=== PATIENT | male | born 1950 | race Caucasian/White ===

== ENCOUNTER 2018-08-16 18:40 | Inpatient (IN) | payer MEDICARE, OTHER ==
[2018-08-16 19:32] LABS: #Basophils 0.1 thou/uL (0.0-0.2); #Lymphocytes 1.2 thou/uL (1.20-3.40); #Monocytes 0.5 thou/uL (0.11-0.59); #Neutrophils 5.2 thou/uL (1.40-6.50); %Basophils 1.1 % (0.0-1.0); %Eosinophils 0.5 % (0.0-10.0); %Lymphocytes 16.7 % (21.0-51.0); %Monocytes 7.6 % (0.0-10.0); %Neutrophils 74.2 % (42.0-75.0); Hemoglobin 12.9 g/dL (14.0-18.0); Mean Corpuscular HGB CONC 32.9 g/dL (32.0-36.0); Mean Corpuscular Volume 91.4 fL (78.0-98.0); Mean Platelet Volume 7.5 fL (7.4-10.4); Platelet Count 264 thou/uL (130-400); Red Blood Cell (RBC) Count 4.28 mill/uL (4.70-6.10); White Blood Cell (WBC) Count 7.1 thou/uL (4.8-10.8)
[2018-08-16 19:52] LABS: ALT (SGPT) 16 U/L (8-55); AST (SGOT) 22 U/L (5-34); Alkaline Phosphatase 191 U/L (40-150); Anion Gap 16 mmol/L (10-20); BUN (Urea Nitrogen) 11 mg/dL (8.4-25.7); CK (CPK) 48 U/L (30-200); Calc. Creatinine Clearance 0 mL/min (70-130); Calcium 9.9 mg/dL (7.8-10.44); Carbon Dioxide 23 mmol/L (23-31); Chloride 103 mmol/L (98-107); Estimated GFR-MDRD Greater than 90; Globulin 4.5 g/dL (2.4-3.5); Glucose 92 mg/dL (80-115); Potassium 3.8 mmol/L (3.5-5.1); Protein, Total 8.5 g/dL (5.8-8.1); Sodium 138 mmol/L (136-145)
--- NOTE | 2018-08-16 21:24 | RAD ---
TWO VIEWS CHEST: Date: 08-16-18 Comparison: None. History: Shortness of breath, CHF. FINDINGS: Midline sternotomy wires are present. No pneumothorax is seen. There is blunting of the left costophr enic angle suggesting a small left pleural effusion. Increased linear interstitial density and pulmonary hyperinflation suggests possible underlying COPD. There is nonspecific dense opacity involving the inferior half of the right hemithorax suggesting rig ht pleural effusion with nonspecific consolidation/collapse of the right middle and right lower lobe. Underlying mass lesion cannot be excluded. IMPRESSION: Prominent increased pleural and parenchymal opacity in the right base. Findings suggest infectious pn eumonitis/aspiration. Underlying mass lesion cannot be excluded. Short term follow up imaging of the chest following treatment to document resolution advised. There appears to be superimposed COPD. Clin ical correlation is essential. Code T POS: JULIAN
--- NOTE | 2018-08-16 23:22 | CT ---
CHEST CT SCAN WITHOUT IV CONTRAST: History: Increasing shortness of breath for the last three days, difficulty lying flat. Prior thoracentesis. FINDINGS: There is lymphadenopathy with the largest lymph node noted in the right paratracheal region measuring up to 2 cm in short axis. Other minimally enlarged lymph nodes in the AP window and right and left h ilar regions. Moderate sized right pleural effusion containing some small pockets of air suggesting r ecent instrumentation. There are some underlying parenchymal changes in the right anterior midlung zo ne which are pleural based measuring approximately 2 x 4 cm as well as a larger area in the right low er lobe and right lung base which measures approximately 7 cm in diameter. These could represent just focal nodular areas of subsegmental atelectasis although certainly the possibility of underlying mas s, particularly in the lower lobe area of abnormality is certainly a consideration as well given the mediastinal adenopathy. Small amount of left pleural effusion. The visualized liver, gallbladder, and pancreas are unremarkable. There is minimal splenomegaly. IMPRESSION: Moderate sized right pleural effusion containing some pockets of gas within it. This suggests either prior instrumentation or possibly infected pleural fluid. Two areas of confluent parenchymal density, one in the right middle lobe anterior and the other in the right lower lobe posteriorly. These could represent areas of atelectasis although certainly underlying mass or pneumonia are considerations as well. Mediastinal adenopathy as above with the largest node in the right paratracheal region measuri ng 2 cm in short axis. Small left pleural effusion. Splenomegaly. POS: [facility]
[2018-08-17] MEDS ORDERED: Dextrose 5% in Water 1,000 ML IV PRN (05:31)
[2018-08-17] MEDS ORDERED: Dextrose 50% Abboject 50 ML SYRINGE SLOW IVP PRN (05:31)
[2018-08-17] MEDS ORDERED: HumaLOG 300 UNITS/3 ML VIAL SC PRN ×2 (06:05)
[2018-08-17] MEDS ORDERED: Guaifenesin DM 100-10/5 ML UDCUP PO PRN (06:05)
[2018-08-17] MEDS ORDERED: Calcium Carbonate 500 MG ChewTAB PO PRN (06:05)
[2018-08-17] MEDS ORDERED: Acetaminophen 325 MG TAB PO PRN (06:05)
[2018-08-17] MEDS: Nicotine 14 MG PATCH TD SCH ×2 (08:47→09:07)
[2018-08-17] MEDS ORDERED: Famotidine 20 MG TAB ONE (09:17)
[2018-08-17] MEDS: Famotidine 20 MG TAB PO SCH ×2 (09:19→19:37)
[2018-08-17] MEDS: Famotidine/PF 20 mg/2ml Vial SLOW IVP SCH ×2 (09:22→19:39)
[2018-08-17 11:56] VITALS: BMI 28.1
[2018-08-17] MEDS: Piperacillin/Tazobactam 4.5 GM in Sodium Chloride 0.9% 100 ML IVPB SCH ×3 (12:41→23:52)
[2018-08-17] MEDS: Vancomycin HCl 1.25 GM in Sodium Chloride 0.9% 250 ML 250 ML IVPB SCH (14:19)
--- NOTE | 2018-08-17 15:04 | PDOC.PN ---
- Subjective Encounter Start Date: 08/17/18 Encounter Start Time: 15:00 Subjective: f/u for R pleural effusion and dyspnea. Hx of R pleural effusion s/ p -: thoracentesis x 4 times at [facility] . No pathology -: reported to patient. - Objective Resuscitation Status - Order Detail: 08/17/18 06:05 Resuscitation Status Routine Resuscitation Status: FULL: Full Resuscitation MAR Reviewed: Yes Vital Signs & Weight: Vital Signs (12 hours) Temp Pulse Resp BP Pulse Ox 08/17/18 10:50 97.6 F 98 20 167/79 H 93 L 08/17/18 06:05 93 L Weight Weight 196 lb 5 oz I&O: 08/16/18 08/17/18 08/18/18 06:59 06:59 06:59 Intake Total 240 Balance 240 Result Diagrams: 08/16/18 19:25 08/16/18 19:25 Additional Labs: Laboratory Tests 08/16/18 19:25 B-Natriuretic Peptide 353.5 H Radiology Reviewed by me: Yes (CT chest - R pleural effusion, R pulmonary mass/ adenopathy) Phys Exam - Physical Examination Constitutional: NAD HEENT: PERRLA, sclera anicteric, oral pharynx no lesions Neck: no nodes, no JVD, supple, full ROM diminished in R base Respiratory: no wheezing II/ ADRIANA in RUSB Cardiovascular: RRR, no rub, gallop Gastrointestinal: soft, non-tender, no distention, positive bowel sounds + edema, mild LE's venous stasis changes LE's bilat Musculoskeletal: pulses present Neurological: normal sensation, moves all 4 limbs Psychiatric: A&O x 3 Skin: normal turgor, cap refill <2 seconds Dx/Plan (1) Recurrent right pleural effusion Code(s): J90 - PLEURAL EFFUSION, NOT ELSEWHERE CLASSIFIED Status: Acute Comment: Recent thoracentesis x 4 with ? 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
[2018-08-17] MEDS ORDERED: Furosemide 40 MG/4 ML VIAL SLOW IVP SCH ×3 (16:30→17:00)
[2018-08-17] MEDS ORDERED: Losartan 25 MG TAB PO SCH (16:45)
[2018-08-17] MEDS ORDERED: Sodium Chloride 0.9% 10 ML ONE ×2 (19:33→23:06)
[2018-08-17] MEDS: traMADol HCl 50 MG TAB PO PRN (19:38)
--- NOTE | 2018-08-17 21:36 | HP ---
CHIEF COMPLAINT: Shortness of breath. HISTORY OF PRESENT ILLNESS: This is a 67-year-old male with past medical history of hyperlipidemia, and hypertension presenting with shortness of breath which has been worsened in the last three days prior to the day of admission. Per the patient, he has been having right-sided pleural effusion, which needed drainage. The patient states that he went to the physician in the Clinic and over there, the patient stated that he was treated by a physician who was contracted by the hospital and the physician told the patient that he has pleural effusion, which is making him very concerned of possible malignancy. At that point, the patient states that about 4.5 L of pleural fluid was drained. The patient stated that physician took some of the fluid and sent it to investigate if the patient has cancer and if the patient has malignancy. The patient states that he never got a clear result on whether there were some malignant cells or not. The patient stated that he has been trying to reach out to some of the doctors, but he has not been able to get in touch. The patient states that on July 29, he had to go back because he was developing another episode of shortness of breath and during that time, two bottles of fluid was also drained at that time. The patient stated that a tube was placed so that he can be able to keep draining from the lungs. Now the patient is coming to our hospital with a similar episode of shortness of breath, and per the patient, he has been told that there might be a possible mass or cancer. However, the patient stated that no definitive diagnosis has been made at this time. Per patient, he will give authorization for the hospital that he went to in the past for them to send his records and to follow up on the cytology that was ordered in the past. REVIEW OF SYSTEMS: Positive for shortness of breath, otherwise as documented in the HPI. All systems have been reviewed and are negative. PAST MEDICAL HISTORY: CHF, hyperlipidemia, and hypertension. PAST SURGICAL HISTORY: The patient had thoracentesis x2 in May 2018 and July 2018; mitral valve replacement; hernia surgery; and appendectomy. PSYCHIATRIC HISTORY: Anxiety. FAMILY HISTORY: Reviewed and noncontributory to this visit. SOCIAL HISTORY: The patient is a former tobacco smoker, he smoked for many years. The patient stated that he has quit and now he has gotten to the point where he just needs only two or three cigarettes in the day. ALLERGIES: NO KNOWN DRUG ALLERGIES. CURRENT MEDICATIONS: The patient takes: 1. Amlodipine 10 mg. 2. Metoprolol. 3. Losartan. 4. Furosemide. 5. Sertraline. PHYSICAL EXAMINATION: VITAL SIGNS: The patient's blood pressure is 176/78, pulse of 94, respiratory rate of 16, temperature of 97.7, oxygen saturation is 94. GENERAL: The patient is lying in bed, appears to be in mild distress due to shortness of breath. The patient appears his stated age. HEENT: Normocephalic, atraumatic. Pupils are equally round and reactive to light. Extraocular movements are intact. No scleral icterus. No conjunctival pallor. Mucous membranes are moist. Trachea is midline. Full range of motion. No JVDs appreciated. NECK: Supple. LUNGS: The patient has decreased right posterior lung sounds. He has good and clear lung sounds at the anterior lung walters bilaterally. CARDIAC: Positive S1 and S2. Regular rate and rhythm. No murmurs, no gallops, no rubs appreciated. ABDOMEN: Soft, nontender, and nondistended. Positive bowel sounds in all quadrants. No peritoneal signs. No rigidity. No guarding. EXTREMITIES: The patient has 5/5 upper extremity strength and good pulses bilaterally at the upper extremity and the lower extremity. The patient does have 2+ pitting edema at the lower extremities and good strength bilaterally at the lower extremities and the patient does have 2/4 dorsalis pedis pulses. NEUROLOGIC: Cranial nerves 2 through 12 grossly intact. No neurologic deficits noted. SKIN: Warm, dry, and intact. PSYCH: Normal affect. Alert and oriented x3. DIAGNOSTIC DATA: 1. EKG: A 12-lead EKG shows sinus rhythm with a rate of 97. 2. X-ray shows a right pleural effusion. 3. CT of the chest shows moderate-sized right pleural effusion containing some pockets of gas within it. This suggests prior instrumentation or possible infected pleural fluid. Two areas of confluent parenchymal density; one in the right middle lobe anterior and the other in the right lower lobe posteriorly. This could represent a risk of atelectasis although certainly underlying mass or pneumonia are considered as well. LABORATORY DATA: WBC 7.1, hemoglobin is 12.9, hematocrit is 39.2, and platelet count is 264. Sodium is 138, potassium is 3.8, chloride is 103, carbon dioxide of 23, anion gap of 16, BUN is 11, creatinine is 0.75, alkaline phosphatase is 191, and BNP is 353.5. ASSESSMENT AND PLAN: This is a 67-year-old being admitted for: 1. Shortness of breath, likely due to right-sided pleural effusion. At this time, the patient has been admitted to the hospital. We have consulted Pulmonology. The patient will need thoracentesis. We will continue to monitor the patient closely. We will give the patient respiratory treatment p.r.n. 2. Pleural effusion, likely due to possible malignancy. At this time, we will follow up on patient's previous labs and obtain the lab results. We will continue to monitor the patient closely. We will consult Oncology, Cardiology and Pulmonology. 3. Bilateral lower extremity edema, likely due to congestive heart failure exacerbation. At this point, we will continue the patient on his home current medications. We will continue to monitor the patient closely. 4. Abnormal chest x-ray, likely due to possible mass or underlying pneumonia. The patient will benefit from IV antibiotics. We will monitor the patient and consider starting the patient on vancomycin and Zosyn for broad-spectrum coverage. We will continue to monitor the patient at this time. 5. Hyperlipidemia. We will continue the patient on home medication. 6. Hypertension, currently uncontrolled. We will give the patient p.r.n. blood pressure medications to control the patient's blood pressure and we will continue the patient on home medications. 7. Deep venous thrombosis and gastrointestinal prophylaxis. Job ID: [id number]
[2018-08-18] MEDS: Vancomycin HCl 1.25 GM in Sodium Chloride 0.9% 250 ML 250 ML IVPB SCH ×2 (00:27→13:30)
--- NOTE | 2018-08-18 01:59 | CON ---
DATE OF CONSULTATION: 08/17/2018 HISTORY OF PRESENT ILLNESS: Mr. Luevano is a 67-year-old male. Apparently, he has had a pleural effusion and density in his right lower lung field that resembles a mass. He tells me he has never been biopsied. He has had multiple taps of his chest. He was never given a report of pathology or fluid results. He says the doctor that did the procedure does not live in this area and comes into town from [facility] and has never given him any results, and he has no idea how to get in contact with that doctor. PAST MEDICAL HISTORY: 1. Remarkable for lipid disorder. 2. History of cardiomyopathy, followed by Dr. Abdulkadir Hollingsworth. 3. History of hypertension. 4. History of two taps of his chest. Last time he says 2 L of brown fluid was removed from his chest. 5. History of porcine aortic valve replacement done in 2010. 6. History of hernia surgery. 7. History of appendectomy. SOCIAL HISTORY: He was a former half pack-a-day smoker. Recently started smoking a cigarette in the morning with coffee, but has quit doing that again. He always dips snuff. FAMILY HISTORY: Negative for lung disease in early age. REVIEW OF SYSTEMS: Ten-points review of systems completed, otherwise negative. He actually denies chest discomfort unless he moves suddenly. He denies fever, chills, sweats, purulent sputum, or hemoptysis. A 10-point review of systems is otherwise negative. PHYSICAL EXAMINATION: GENERAL: He is a very pleasant gentleman. He is in no distress. VITAL SIGNS: He is afebrile. Heart rate is 60, respiratory rate is 18, oximetry is 95% on room air, blood pressure 171/79. HEENT: Pupils are equal. Sclerae anicteric. NECK: Supple. No lymphadenopathy. LUNGS: Remarkable for decreased breath sounds at his right base. HEART: Regular rhythm. ABDOMEN: Soft and nontender. EXTREMITIES: Without clubbing, cyanosis or edema. LABORATORY DATA: White count 7.1, hemoglobin 12.9, platelets 264. Electrolytes are normal. BNP is 353. Serum protein total is 8.5, albumin is 4, globulin is 4.5. Chest CT shows right-sided pleural effusion. Right paratracheal lymph node is seen. There is a 2 x 4 cm density in the right lower lobe, it is oblong, does not have a classic appearance of malignancy but certainly could be. Pleural effusion that is seen on the right has pockets of air in it. IMPRESSION: Pleural effusion on the right, status post drainage procedure twice. I described thoracoscopy to him and he says that is what he had, but not really convinced that he has had a thoracoscopy. I think it is important that we evaluate medical records when we can obtain them from [facility]. With gas in his pleural space, I would be worried about an infection although this would have to be a gas producing anaerobe, which would be unusual. Hopefully, a surgical procedure can be avoided this admission, but I suspect there will have to be some sort of intervention. He appears medically stable fortunately at this time. It is a 50-minute consult, with greater than 50% of time was spent on the unit coordinating care. Job ID: [id number] [facility]
[2018-08-18 05:24] LABS: #Basophils 0.1 thou/uL (0.0-0.2); #Eosinphils 0.1 thou/uL (0.0-0.7); #Lymphocytes 1.6 thou/uL (1.20-3.40); #Monocytes 0.6 thou/uL (0.11-0.59); %Basophils 1.2 % (0.0-1.0); %Eosinophils 1.6 % (0.0-10.0); %Lymphocytes 25.8 % (21.0-51.0); %Monocytes 8.9 % (0.0-10.0); %Neutrophils 62.4 % (42.0-75.0); Hemoglobin 11.4 g/dL (14.0-18.0); Mean Corpuscular HGB CONC 33.4 g/dL (32.0-36.0); Mean Corpuscular Volume 89.8 fL (78.0-98.0); Platelet Count 242 thou/uL (130-400); RBC Distribution Width 12.9 % (11.5-14.5); Red Blood Cell (RBC) Count 3.79 mill/uL (4.70-6.10); White Blood Cell (WBC) Count 6.4 thou/uL (4.8-10.8)
[2018-08-18] MEDS: Piperacillin/Tazobactam 4.5 GM in Sodium Chloride 0.9% 100 ML IVPB SCH ×3 (05:27→18:08)
[2018-08-18 05:47] LABS: ALT (SGPT) 13 U/L (8-55); AST (SGOT) 16 U/L (5-34); Albumin 3.2 g/dL (3.4-4.8); Alkaline Phosphatase 159 U/L (40-150); Anion Gap 11 mmol/L (10-20); BUN (Urea Nitrogen) 11 mg/dL (8.4-25.7); Bilirubin, Total 1.3 mg/dL (0.2-1.2); Calc. Creatinine Clearance 112 mL/min (70-130); Carbon Dioxide 26 mmol/L (23-31); Chloride 103 mmol/L (98-107); Estimated GFR-MDRD Greater than 90; Globulin 3.8 g/dL (2.4-3.5); Glucose 95 mg/dL (80-115); Potassium 3.7 mmol/L (3.5-5.1); Sodium 136 mmol/L (136-145)
[2018-08-18] MEDS: Furosemide 40 MG/4 ML VIAL SLOW IVP SCH ×2 (06:10→13:31)
[2018-08-18] MEDS: Losartan 25 MG TAB PO SCH (08:48)
[2018-08-18] MEDS: Famotidine 20 MG TAB PO SCH ×2 (08:48→21:04)
[2018-08-18] MEDS: Nicotine 14 MG PATCH TD SCH (08:49)
--- NOTE | 2018-08-18 09:13 | PRG ---
DATE OF SERVICE: 08/18/2018 SUBJECTIVE: Mr. Luevano has no complaints overnight. OBJECTIVE: VITAL SIGNS: He is afebrile, heart rate is 65, respiratory rate is 18, oximetry is 95 on room air, and blood pressure is 144/65. LUNGS: Remarkable for decreased breath sounds in the right. HEART: Regular rhythm. ABDOMEN: Soft. I reviewed pleural fluid from [facility] from May. They did not send records that we requested from July. He says he had thoracoscopy and a chest tube and he actually has a chest tube scar or port scar in his right lateral chest. He also tells me that they did biopsies on him. I will again try to get these records. His pleural fluid had a protein of 4 with an LDH less than 200. The pH is 7.49. Cytology was negative. I did not find a cell count in the notes that were sent over. The cultures were negative. This again was back in May. His main concern that this pleural fluid with pockets of air. This is obviously worrisome for an infectious process, but I guess this could be related to removal of the chest tube and post chest tube removal pneumothorax that is resolving slowly mixed with chronic pleural effusion. I am hesitant to get CT Surgery involved until we have further records can evaluate his past care further. This is clearly a chronic effusion. It is initially sterile. The question to be answered is has it become infected. He also has this oval density in his lung parenchyma. An ideal time to biopsy this would have been when he had a chest tube in. It is unclear whether or not this has been biopsied. I suspect what he is saying was biopsied was pleura. Job ID: [id number] [facility]
--- NOTE | 2018-08-18 09:42 | CON ---
DATE OF CONSULTATION: HISTORY OF PRESENT ILLNESS: The patient is a 67-year-old gentleman, who presented with increasing dyspnea. The patient has a previous history of aortic valve replacement. He is followed by Dr. Abdulkadir Hollingsworth. The patient has been admitted several occasions with a right pleural effusion. He has undergone several thoracentesis. The patient has been also treated with IV Lasix. The patient denies having any chest discomfort. He reports having progressive dyspnea. The patient denies having any PND or orthopnea. PAST MEDICAL HISTORY: 1. Hypertension. 2. Aortic valve replacement. 3. Possible lung mass. PAST SURGICAL HISTORY: AVR, appendectomy , colon surgery and hernia surgery. SOCIAL HISTORY: He is a former smoker. MEDICATIONS: 1. Zoloft 50 daily. 2. Losartan 100 daily. 3. Norvasc 10 daily. 4. Toprol-XL 100 daily. 5. Lasix 40 daily. FAMILY HISTORY: No strong family history of heart disease. ALLERGIES: NO KNOWN DRUG ALLERGIES. REVIEW OF SYSTEMS: Ten-point system otherwise unremarkable. No history of easy bruising, bleeding, or bright red blood per rectum. PHYSICAL EXAMINATION: GENERAL: Thin gentleman, in no acute distress. VITAL SIGNS: Blood pressure 167/79. NECK: Showed no jugular venous distention. LUNGS: Decreased breath sounds throughout the right lung field. HEART: Regular rate and rhythm. Normal S1 and S2. No murmurs. ABDOMEN: Nondistended. EXTREMITIES: Moderate edema. SKIN: Warm and dry. NEUROLOGIC: Nonfocal. Vascular radial pulses are 2+. LABORATORY DATA: Sodium 138, potassium 3.8, chloride 103, bicarbonate 23, BUN 11, creatinine 0.75. Troponin was 0.019. White blood cell count 7.1, hemoglobin 12.9, hematocrit 39.2, and platelets 264. His chest x-ray showed him to have a large right-sided effusion. IMPRESSION: 1. Congestive heart failure, probably diastolic dysfunction. 2. History of aortic valve replacement. 3. Possible pulmonary mass. 4. Recurrent pleural effusions. 5. Hypertension. 6. History of tobacco abuse. This gentleman presents with congestive heart failure. From a cardiac standpoint, we will treat the patient with IV Lasix. Would discontinue Norvasc. We will restart the patient on his losartan. The patient is being evaluated for possible repeat thoracentesis. We will follow this patient with you through his hospitalization. Job ID: [id number] [facility]
[2018-08-18] MEDS: Famotidine/PF 20 mg/2ml Vial SLOW IVP SCH (12:47)
[2018-08-18] MEDS: traMADol HCl 50 MG TAB PO PRN (15:15)
--- NOTE | 2018-08-18 17:18 | PDOC.PN ---
- Subjective Encounter Start Date: 08/18/18 Encounter Start Time: 17:00 Subjective: f/u for dyspnea due to recurrent R pleural effusion. Pt states SOB less -: today. No fever or chills - Objective Resuscitation Status - Order Detail: 08/17/18 06:05 Resuscitation Status Routine Resuscitation Status: FULL: Full Resuscitation MAR Reviewed: Yes Vital Signs & Weight: Vital Signs (12 hours) Temp Pulse Resp BP BP Pulse Ox 08/18/18 12:00 97 F L 54 L 16 133/74 08/18/18 08:00 97.3 F L 59 L 16 140/63 96 Weight Weight 195 lb 6.4 oz I&O: 08/17/18 08/18/18 08/19/18 06:59 06:59 06:59 Intake Total 1634 Output Total 1350 900 Balance 284 -900 Result Diagrams: 08/18/18 04:28 08/18/18 04:28 Additional Labs: Microbiology 05/02/13 12:10 Urine voided Urine Culture - Final Escherichia coli Laboratory Tests 08/16/18 08/16/18 08/16/18 19:25 19:25 19:25 Hgb 12.9 L Total Bilirubin 1.0 Alkaline Phosphatase 191 H B-Natriuretic Peptide 353.5 H 08/18/18 04:28 Hgb Total Bilirubin Alkaline Phosphatase 159 H B-Natriuretic Peptide EKG Reviewed by me: Yes (Tele - SR) Phys Exam - Physical Examination Constitutional: NAD HEENT: PERRLA, sclera anicteric, oral pharynx no lesions Neck: no nodes, no JVD, supple, full ROM diminished in R base S1, S2 Cardiovascular: RRR, no rub, gallop Gastrointestinal: soft, non-tender, no distention, positive bowel sounds minimal LE edema Musculoskeletal: pulses present Neurological: normal sensation, moves all 4 limbs Psychiatric: A&O x 3 Skin: normal turgor, cap refill <2 seconds Dx/Plan (1) Recurrent right pleural effusion Code(s): J90 - PLEURAL EFFUSION, NOT ELSEWHERE CLASSIFIED Status: Acute Comment: Recent thoracentesis x 4 with reactive effusion and no current evidence for malignancy, Pulmonology assistance appreciated, obtain records from [facility] from recent admits, Lasix 40mg IV BID, continue Zosyn/Vancomycin (2) Dyspnea Code(s): R06.00 - DYSPNEA, UNSPECIFIED Status: Acute Comment: Secondary to # 1, see above, improved (3) Pulmonary mass Code(s): R91.8 - OTHER NONSPECIFIC ABNORMAL FINDING OF LUNG FIELD Status: Acute Comment: Suspected, consult Pulmonology service, obtain pathology from recent bronchoscopy/thoracentesis at [facility] (4) Chronic anticoagulation 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(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 Status: Acute Comment: Hold Eliquis pending evaluation from Pulmonology (5) CHF (congestive heart failure) Code(s): I50.9 - HEART FAILURE, UNSPECIFIED Status: Chronic Qualifiers: Heart failure type: unspecified Heart failure chronicity: chronic Qualified Code(s): I50.9 - Heart failure, unspecified Comment: Compensated currently, obtain echo results to assess EF - Plan continue antibiotics, 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
[2018-08-19] MEDS: Piperacillin/Tazobactam 4.5 GM in Sodium Chloride 0.9% 100 ML IVPB SCH ×4 (00:42→18:18)
[2018-08-19 00:48] LABS: Vancomycin, Trough 15.4 ug/mL
[2018-08-19] MEDS: Vancomycin HCl 1.25 GM in Sodium Chloride 0.9% 250 ML 250 ML IVPB SCH ×2 (01:14→12:51)
[2018-08-19] MEDS: Furosemide 40 MG/4 ML VIAL SLOW IVP SCH ×2 (06:13→14:58)
[2018-08-19] MEDS: Famotidine 20 MG TAB PO SCH ×2 (08:54→20:52)
[2018-08-19] MEDS: Potassium Chloride 20 MEQ TAB PO SCH (08:54)
[2018-08-19] MEDS: traMADol HCl 50 MG TAB PO PRN (11:32)
[2018-08-19] MEDS: Losartan 25 MG TAB PO SCH (15:06)
--- NOTE | 2018-08-19 17:06 | PDOC.PN ---
- Subjective Encounter Start Date: 08/19/18 Encounter Start Time: 17:00 Subjective: f/u for recurent R pleural effusion of unclear etiology with negative -: pathology to date. Receiving IV Lasix, Zosyn and feels -: better. - Objective Resuscitation Status - Order Detail: 08/17/18 06:05 Resuscitation Status Routine Resuscitation Status: FULL: Full Resuscitation MAR Reviewed: Yes Vital Signs & Weight: Vital Signs (12 hours) Temp Pulse Resp BP BP Pulse Ox 08/19/18 12:10 98.9 F 54 L 16 154/65 H 92 L 08/19/18 08:40 97.8 F 53 L 16 140/63 95 Weight Weight 194 lb 9.6 oz I&O: 08/18/18 08/19/18 08/20/18 06:59 06:59 06:59 Intake Total 1634 1450 320 Output Total 1350 2990 Balance 284 -1540 320 Result Diagrams: 08/18/18 04:28 08/18/18 04:28 EKG Reviewed by me: Yes (Tele - SR) Phys Exam - Physical Examination Constitutional: NAD alert, smiling HEENT: PERRLA, sclera anicteric, oral pharynx no lesions Neck: no nodes, no JVD, supple, full ROM diminished in R field Respiratory: no wheezing S1, S2 Cardiovascular: RRR, no rub, gallop Gastrointestinal: soft, non-tender, no distention, positive bowel sounds Musculoskeletal: no edema, pulses present Neurological: normal sensation, moves all 4 limbs Psychiatric: A&O x 3 Skin: normal turgor, cap refill <2 seconds Dx/Plan (1) Recurrent right pleural effusion Code(s): J90 - PLEURAL EFFUSION, NOT ELSEWHERE CLASSIFIED Status: Acute Comment: s/p recent thoracentesis with reactive effusion and no current evidence for malignancy, Pulmonology assistance appreciated, obtain records from [facility] from recent admits, Lasix 40mg IV BID, continue Zosyn (2) Dyspnea Code(s): R06.00 - DYSPNEA, UNSPECIFIED Status: Acute Comment: Secondary to # 1, see above, improved (3) Pulmonary mass Code(s): R91.8 - OTHER NONSPECIFIC ABNORMAL FINDING OF LUNG FIELD Status: Acute Comment: Suspected, consult Pulmonology service, obtain pathology from recent bronchoscopy/thoracentesis at [facility] (4) Chronic anticoagulation Code(s): Z79.01 - SNF (CURRENT) USE OF ANTICOAGULANTS Status: Acute Comment: Hold Anne pending evaluation from Pulmonology (5) CHF (congestive heart failure) Code(s): I50.9 - HEART FAILURE, UNSPECIFIED Status: Chronic Qualifiers: Heart failure type: unspecified Heart failure chronicity: chronic Qualified Code(s): I50.9 - Heart failure, unspecified Comment: Compensated currently, obtain echo results to assess EF - Plan continue antibiotics, social work nurse, respiratory therapy, out of bed/ambulate , DVT proph w/SCDs Stable overall -: Continue Lasix 40mg IV BID -: CT surgical consult for potential thoracoscopy, bx, pleurodesis -: Continue Zosyn -: Hold Michellequcody * .
--- NOTE | 2018-08-19 17:27 | PRG ---
DATE OF SERVICE: 08/19/2018 SUBJECTIVE: We finally received records from [facility]. Reviewed them. Apparently, Mr. Luevano had a 14-gauge chest tube placed under ultrasound guidance. He also had a bronchoscopy with a needle aspirate of his main estelle, transbronchial biopsies reportedly in his right lower lobe, and lavage of his middle lobe. No enlightening abnormalities were identified. I again reviewed his CT, and CT has the appearance of loculation of this fluid with air in it. It was noted when he was at [facility] that he had air in his pleural space. It is unclear whether this is related to transbronchial biopsies, chest tube placement, anaerobes, or an infection in that space. I do not think we are going to figure out a way to easily sort through this other than possibly thoracoscopy and chest tube placement. He also has a density in his right base that could be malignant, although it is oblong. This probably needs to be biopsied while he has a chest tube in if we can facilitate this. I plan to discuss the above with Cardiothoracic Surgery. Job ID: [id number]
[2018-08-20] MEDS: Piperacillin/Tazobactam 4.5 GM in Sodium Chloride 0.9% 100 ML IVPB SCH ×4 (00:45→17:42)
--- NOTE | 2018-08-20 00:50 | CON ---
DATE OF CONSULTATION: HISTORY OF PRESENT ILLNESS: Mr. Luevano is a 67-year-old gentleman, who was admitted with recurrent right pleural effusion. He was seen at the [facility] in late 2018 and had what sounds like chest tube and bronchoscopy done. His effusion was drained and was an exudative effusion. Bronchoscopy and biopsies were negative as far as results that we can obtain. He re-presented with recurrent right loculated pleural effusion that has air in it. He has had no fever or chills. No cough. He also has a right middle lobe potential mass-I have a hard time actually seeing this due to the compression of the middle lobe from his effusion but per previous reports, it is middle lobe mass. I have been asked to see him for further recommendations. PAST MEDICAL HISTORY: 1. Dyslipidemia. 2. Cardiomyopathy. 3. Hypertension. 4. Recurrent right pleural effusion. 5. History of aortic valve replacement in 2010 with a porcine aortic valve. 6. Status post appendectomy. 7. Status post herniorrhaphy. SOCIAL HISTORY: He is a former smoker. He continues to dip snuff. REVIEW OF SYSTEMS: Ten-point review of systems is performed and is negative except as above. PHYSICAL EXAMINATION: GENERAL: This is a thin gentleman, who is resting comfortably post diuresis. VITAL SIGNS: Height 5 feet 10 inches, weight is 194 pounds, temperature is 98.9, pulse is 50 and regular, blood pressure is 154/65. LUNGS: Clear bilaterally. He has diminished breath sounds over the low right chest. HEART: Rhythm is regular. Has good valve snap. Sternum is healed nicely. ABDOMEN: Soft and nontender. EXTREMITIES: He has mild edema-he has pictures of his edema prior to the admission showing significant bilateral lower extremity edema. I have reviewed his chest CT and chest x-ray series. ASSESSMENT AND PLAN: I have discussed with the patient extensively and with Dr. Adams, plan for right thoracoscopy tomorrow. We will hopefully be able to free up all of his lung, so it can re-expand, biopsy his pleura decorticate and drain all the loculations and biopsy the lung mass if we can actually see where it is on his lung. Job ID: [id number]
[2018-08-20] MEDS ORDERED: Midazolam HCl 2 mg/2 ml Vial ONE ×2 (09:30→12:37)
[2018-08-20] MEDS ORDERED: Fentanyl 250 MCG/5 ML VIAL ONE (09:54)
[2018-08-20 10:06] LABS: #Basophils 0.1 thou/uL (0.0-0.2); #Eosinphils 0.1 thou/uL (0.0-0.7); #Lymphocytes 1.4 thou/uL (1.20-3.40); #Monocytes 0.6 thou/uL (0.11-0.59); #Neutrophils 4.3 thou/uL (1.40-6.50); %Basophils 0.8 % (0.0-1.0); %Eosinophils 1.9 % (0.0-10.0); %Lymphocytes 21.9 % (21.0-51.0); %Monocytes 9.5 % (0.0-10.0); %Neutrophils 65.9 % (42.0-75.0); Hemoglobin 12.5 g/dL (14.0-18.0); Mean Corpuscular HGB CONC 32.3 g/dL (32.0-36.0); Mean Corpuscular Hemoglobin 29.2 pg (27.0-31.0); Mean Corpuscular Volume 90.4 fL (78.0-98.0); Mean Platelet Volume 7.4 fL (7.4-10.4); Platelet Count 279 thou/uL (130-400); Red Blood Cell (RBC) Count 4.27 mill/uL (4.70-6.10); White Blood Cell (WBC) Count 6.6 thou/uL (4.8-10.8)
--- NOTE | 2018-08-20 10:13 | PRG ---
DATE OF SERVICE: 08/20/2018 SUBJECTIVE: Mr. Luevano is to go for thoracoscopy today and chest tube placement with a decortication, washout if necessary. Hopefully, we can set him up for a CT-guided biopsy of this density in his right lower lobe. He has no new complaints today. He remains afebrile. His vital signs remained stable. His oximetry is 96% on room air. He has no wheezes on exam. IMPRESSION: 1. Exudative pleural effusion when tapped back in May, negative cytology. 2. Status post bronchoscopy by another physician. It is unclear whether or not the mass is identified under fluoroscopy, but it did not look like it reading the notes. 3. Loculated pockets of air in the pleural fluid, actually present back in July. It is unclear whether or not his pleural space has become infected, so he will have thoracoscopy today, washout, decortication, and cultures. 4. Density in is right lower lobe. This could be round-like atelectasis, but with smoking history, it could also be a malignant process. Hopefully, we can set him up for a CT-guided biopsy tomorrow while he has a chest tube in place. Hopefully, we will get all these questions answered, and he will proceed with recovery. Job ID: [id number]
[2018-08-20 10:21] LABS: INR-International Normal Ratio 1.1; Prothrombin Time 14.3 SEC (12.0-14.7)
[2018-08-20 10:29] LABS: PTT 244.1 SEC (22.9-36.1)
[2018-08-20 10:30] LABS: Anion Gap 12 mmol/L (10-20); BUN (Urea Nitrogen) 16 mg/dL (8.4-25.7); Calc. Creatinine Clearance 107 mL/min (70-130); Calcium 9.1 mg/dL (7.8-10.44); Carbon Dioxide 26 mmol/L (23-31); Chloride 103 mmol/L (98-107); Estimated GFR-MDRD Greater than 90; Glucose 95 mg/dL (80-115); Potassium 3.8 mmol/L (3.5-5.1); Sodium 137 mmol/L (136-145)
[2018-08-20] MEDS ORDERED: Bupivacaine HCl 0.5%/Epinephrine 1:200,000/PF 30 ml Vial ONE (10:36)
[2018-08-20] MEDS ORDERED: Albuterol Sulfate 1.25 MG/3 ML NEB ONE (12:23)
[2018-08-20] MEDS ORDERED: Promethazine HCl 25 MG/ML VIAL SLOW IVP PRN (12:25)
[2018-08-20] MEDS ORDERED: Ondansetron HCl/PF 4 MG/2 ML Vial IVP PRN (12:25)
[2018-08-20] MEDS ORDERED: Promethazine HCl 25 MG/ML VIAL IM PRN (12:25)
[2018-08-20] MEDS ORDERED: Fentanyl 100 MCG/2 ML VIAL ONE ×3 (12:32→12:49)
[2018-08-20] MEDS ORDERED: Sodium Bicarbonate 2.5 MEQ/5 ML VIAL ONE (12:38)
[2018-08-20] MEDS ORDERED: Vecuronium 10 MG VIAL ONE (12:59)
[2018-08-20] MEDS ORDERED: PROPOFOL 200 MG/20 ML VIAL ONE (12:59)
[2018-08-20] MEDS ORDERED: Lidocaine 1% PF 5 ML VIAL ONE (12:59)
[2018-08-20] MEDS ORDERED: Glycopyrrolate 0.2 MG/ML 5 ML SYRINGE ONE (12:59)
[2018-08-20] MEDS ORDERED: Ondansetron PF 4 MG/2 ML Vial ONE (12:59)
[2018-08-20] MEDS ORDERED: HYDROcodone/Acetaminophen 5/325 mg Tablet PO PRN (13:04)
[2018-08-20] MEDS ORDERED: Ondansetron PF 4 MG/2 ML Vial IVP PRN (13:04)
[2018-08-20] MEDS ORDERED: Fentanyl 100 MCG/2 ML VIAL SLOW IVP PRN ×2 (13:04)
--- NOTE | 2018-08-20 14:28 | RAD ---
PORTABLE UPRIGHT INSPIRATORY CHEST RADIOGRAPH: PORTABLE UPRIGHT EXPIRATORY CHEST RADIOGRAPH: HISTORY: Status post right thoracoscopy. COMPARISON: 03/23/2007 FINDINGS: Right-sided central venous catheter with the distal tip projecting over the region of the right atriu m. There is a large bore chest tube in the right lung base. A small, loculated pneumothorax in the right lung base/costophrenic angle is noted. There is increased density in the right lung base, whic h may represent overlying material, along with parenchymal opacification. Patchy interstitial opacit ies in the left lung base are suspected. Sternotomy wires are noted. Heart size is within normal li mits. No osseous abnormalities. IMPRESSION: Loculated pneumothorax in the right lung base. There is a chest tube in this region. POS: [facility]
--- NOTE | 2018-08-20 16:17 | CT ---
CT GUIDED RIGHT LUNG MASS BIOPSY AND ASPIRATION: 08/20/18 HISTORY: Right lung mass. CONSCIOUS SEDATION: 1 mg versed, IV. 50 mcg Fentanyl, IV. At least 30 minutes was spent with patient for conscious sedati on monitoring. FINDINGS: After explaining the procedure and answering all questions, the patient was placed in the left latera l decubitus position and limited CT imaging of the chest was performed. Sterile technique, buffered l ocal anesthesia, conscious sedation, CT guidance and posterior approach were used to carefully advanc e a 19 gauge trocar needle up to the superior portion of the right upper lobe mass abutting the major fissure. Position was confirmed with CT. A total of five 20 gauge core biopsy specimens were obtained and submitted to pathologist on site for evaluation. Some blood came through the needle, so that aspirate was also obtained and submitted to microbiology for evaluation. Needle was removed. Some blood was seen in the lung tissue around the m ass. Patient experienced coughing during the procedure. Patient tolerated the procedure well and was returned in unchanged condition. IMPRESSION: Technically successful CT guided biopsy and aspiration of right upper lobe lung mass. Pathology is pe nding. POS: [facility]
[2018-08-20] MEDS: Famotidine 20 MG TAB PO SCH ×2 (16:42→20:44)
[2018-08-20] MEDS: Losartan 25 MG TAB PO SCH (16:42)
[2018-08-20] MEDS: Furosemide 40 MG/4 ML VIAL SLOW IVP SCH (16:42)
[2018-08-20] MEDS: Potassium Chloride 20 MEQ TAB PO SCH (16:43)
--- NOTE | 2018-08-20 17:32 | PDOC.PN ---
- Subjective Encounter Start Date: 08/20/18 Encounter Start Time: 17:30 Subjective: f/u s/p CT guided bx of RUL mass and CT insertion with evacuation of -: effusion. Feels sore and tired after procedures today. - Objective Resuscitation Status - Order Detail: 08/17/18 06:05 Resuscitation Status Routine Resuscitation Status: FULL: Full Resuscitation MAR Reviewed: Yes Vital Signs & Weight: Vital Signs (12 hours) Temp Pulse Resp BP Pulse Ox 08/20/18 16:24 98.4 F 85 18 128/64 97 08/20/18 07:50 97.8 F 53 L 16 119/58 L 96 08/20/18 07:30 96 Weight Weight 192 lb 6.4 oz I&O: 08/19/18 08/20/18 08/21/18 06:59 06:59 06:59 Intake Total 1450 1930 Output Total 2990 4025 Balance -1540 -3217 Result Diagrams: 08/20/18 09:57 08/20/18 09:57 Additional Labs: Microbiology 05/02/13 12:10 Urine voided Urine Culture - Final Escherichia coli 08/20/18 14:30 Lung - Aspirate Bacterial Culture - Preliminary 08/20/18 11:20 Pleural - Tissue Bacterial Culture - Preliminary Laboratory Tests 08/16/18 08/16/18 08/16/18 19:25 19:25 19:25 Hgb 12.9 L Total Bilirubin 1.0 Alkaline Phosphatase 191 H B-Natriuretic Peptide 353.5 H Vancomycin Trough 08/18/18 08/18/18 08/19/18 04:28 04:28 00:16 Hgb 11.4 L Total Bilirubin Alkaline Phosphatase 159 H B-Natriuretic Peptide Vancomycin Trough 15.4 Radiology Reviewed by me: Yes (PCXR - CT in R lung base with loculated small PTX ) EKG Reviewed by me: Yes (Tele - SR) Phys Exam - Physical Examination Constitutional: NAD HEENT: PERRLA, sclera anicteric, oral pharynx no lesions Neck: no nodes, no JVD, supple, full ROM diminshed in R base with occasional rhonchi R-sided CT in place S1, S2 Cardiovascular: RRR, no significant murmur, no rub, gallop Gastrointestinal: soft, non-tender, no distention, positive bowel sounds Musculoskeletal: no edema, pulses present Neurological: normal sensation, moves all 4 limbs Psychiatric: normal affect, A&O x 3 Skin: normal turgor, cap refill <2 seconds Dx/Plan (1) Recurrent right pleural effusion Code(s): J90 - PLEURAL EFFUSION, NOT ELSEWHERE CLASSIFIED Status: Acute Comment: s/p recent thoracentesis with reactive effusion and no current evidence for malignancy, Pulmonology assistance appreciated, obtain records from [facility] from recent admits, Lasix 40mg IV BID, continue Zosyn, s/p CT- guided bx and CT insertion with evacuation of effusion (2) Dyspnea Code(s): R06.00 - DYSPNEA, UNSPECIFIED Status: Acute Comment: Secondary to # 1, see above, improved (3) Pulmonary mass Code(s): R91.8 - OTHER NONSPECIFIC ABNORMAL FINDING OF LUNG FIELD Status: Acute Comment: Suspected, consult Pulmonology service, obtain pathology from recent bronchoscopy/thoracentesis at [facility], CT-guided bx of RUL mass complete with pathology pending (4) Chronic anticoagulation Code(s): Z79.01 - CORRECTION (CURRENT) USE OF ANTICOAGULANTS Status: Acute Comment: Hold Eliquis pending evaluation from Pulmonology (5) CHF (congestive heart failure) Code(s): I50.9 - HEART FAILURE, UNSPECIFIED Status: Chronic Qualifiers: Heart failure type: unspecified Heart failure chronicity: chronic Qualified Code(s): I50.9 - Heart failure, unspecified Comment: Compensated currently, obtain echo results to assess EF - Plan continue antibiotics, neonatal social worker, respiratory therapy, DVT proph w/SCDs Stable currently -: Continue Zosyn 4.5gm IV q6h -: Continue CT drainage -: Continue Lasix 40mg IV BID another 24h then convert to po -: AM lab: BMP, CBC * .
[2018-08-20] MEDS: HYDROcodone/Acetaminophen 5/325 mg Tablet PO PRN ×2 (17:42→21:43)
[2018-08-20 18:11] LABS: A/G Ratio 0.8 (0.7-1.7); Albumin 2.9 g/dL (2.9-4.4); Alpha 1 0.3 g/dL (0.0-0.4); Alpha 2 0.6 g/dL (0.4-1.0); Gamma 1.6 g/dL (0.4-1.8); Globulin, Total 3.5 g/dL (2.2-3.9); M-Spike Not Observed g/dL (Not Observed)
[2018-08-20] MEDS ORDERED: Labetalol HCl 100 MG/20 ML VIAL ONE (18:20)
--- NOTE | 2018-08-20 18:44 | OP ---
DATE OF PROCEDURE: 08/20/2018 PREOPERATIVE DIAGNOSES: 1. Right recurrent pleural effusion with ? right pleural thickening. 2. Right middle lobe lung mass. PROCEDURES PERFORMED: 1. Right thoracoscopy with total pulmonary decortication. 2. Pleural biopsy. 3. Right central line placement. ANESTHESIA: General endotracheal. ESTIMATED BLOOD LOSS: Less than 100. SPECIMENS: 1. Pleural biopsy specimen x2. 2. Pleural fluid for culture and cytology. DESCRIPTION OF PROCEDURE: After consent was obtained, the patient was brought to the operating room, placed in supine position on the operating room table. Appropriate central line was placed, and general endotracheal anesthesia was induced. Right subclavian central line was placed for IV access. The patient was then placed in the left lateral decubitus position. Joints were appropriately padded. A flexible fiberoptic bronchoscopy was performed to confirm endotracheal tube positioning. The right chest wall was then prepped and draped in usual sterile fashion. Four separate skin incisions were made for instrumentation. The pleura was very thick. Once the pleura was entered, the fluid was evacuated. There was approximately 500 mL in the right lower chest cavity. This was sent for cytology. There was a large amount of fibrinous/gelatinous material within the chest, which was removed. This was also sent for culture. Two separate areas of pleura were biopsied. The pleura was thick and had a nodular appearance to it. The chest was then copiously irrigated. Hemostasis was ensured. The lung was inflated under direct vision. The lower lobe initially did not inflate, but eventually inflated and filled the chest cavity. The wounds were injected with 0.5% Marcaine and closed in layers. The patient was awakened, extubated, and transferred to the recovery in stable condition. Needle, sponge, and instrument counts were all reported as correct at the end of the procedure. Job ID: [id number]
[2018-08-21] MEDS: Piperacillin/Tazobactam 4.5 GM in Sodium Chloride 0.9% 100 ML IVPB SCH ×5 (00:31→23:58)
[2018-08-21] MEDS: Furosemide 40 MG/4 ML VIAL SLOW IVP SCH ×2 (05:43→13:55)
[2018-08-21] MEDS: HYDROcodone/Acetaminophen 5/325 mg Tablet PO PRN ×4 (05:48→21:11)
[2018-08-21 06:45] LABS: Hemoglobin 11.3 g/dL (14.0-18.0); Mean Corpuscular HGB CONC 31.8 g/dL (32.0-36.0); Mean Corpuscular Hemoglobin 29.1 pg (27.0-31.0); Mean Corpuscular Volume 91.3 fL (78.0-98.0); Mean Platelet Volume 7.7 fL (7.4-10.4); Platelet Count 298 thou/uL (130-400); RBC Distribution Width 12.8 % (11.5-14.5); Red Blood Cell (RBC) Count 3.88 mill/uL (4.70-6.10); White Blood Cell (WBC) Count 10.4 thou/uL (4.8-10.8)
[2018-08-21 06:46] LABS: Anion Gap 13 mmol/L (10-20); BUN (Urea Nitrogen) 24 mg/dL (8.4-25.7); Calc. Creatinine Clearance 72 mL/min (70-130); Calcium 8.9 mg/dL (7.8-10.44); Carbon Dioxide 26 mmol/L (23-31); Chloride 102 mmol/L (98-107); Estimated GFR-MDRD 59; Glucose 118 mg/dL (80-115); Potassium 3.9 mmol/L (3.5-5.1); Sodium 137 mmol/L (136-145)
[2018-08-21 08:02] LABS: Band 2 % (5-11); Lymphocytes 16 % (21-51); MDiff Complete? YES; Monocytes 3 % (0-10); Neutrophil 79 % (42-75); RBC Morphology Normal
--- NOTE | 2018-08-21 08:10 | RAD ---
PORTABLE CHEST: DATE: 08/21/2018. PROVIDED CLINICAL HISTORY: Post right thoracoscopy. FINDINGS: Comparison 08/20/2018. Cardiac and mediastinal silhouette is unchanged in appearance. Right-sided ch est tube is redemonstrated in similar position. A small amount of probably loculated pleural gas is again seen. Right-sided central line is again noted in similar position. Volume loss at the left henry ng base is again seen. Pleural and parenchymal change at the right lung base is also noted, similar to prior. IMPRESSION: Stable radiographic appearance of the chest. POS: OFF
[2018-08-21] MEDS: Losartan 25 MG TAB PO SCH (08:51)
[2018-08-21] MEDS: Potassium Chloride 20 MEQ TAB PO SCH (08:52)
[2018-08-21] MEDS: Famotidine 20 MG TAB PO SCH ×2 (08:52→21:13)
--- NOTE | 2018-08-21 14:00 | PDOC.PN ---
- Subjective Encounter Start Date: 08/21/18 Encounter Start Time: 14:00 Subjective: f/u for recurrent R pleural effusion/empyema s/p R decortication -: POD #1. Feels ok overall and CT remains in place. +cough - Objective Resuscitation Status - Order Detail: 08/17/18 06:05 Resuscitation Status Routine Resuscitation Status: FULL: Full Resuscitation MAR Reviewed: Yes Vital Signs & Weight: Vital Signs (12 hours) Temp Pulse Resp BP BP Pulse Ox 08/21/18 11:40 98.0 F 56 L 16 116/58 L 100 08/21/18 07:05 98.0 F 56 L 15 107/54 L 99 08/21/18 04:22 100 08/21/18 02:57 98.2 F 53 L 12 107/50 L 100 Weight Weight 191 lb 4.8 oz I&O: 08/20/18 08/21/18 08/22/18 06:59 06:59 06:59 Intake Total 1930 540 Output Total 4025 1010 Balance -2095 -470 Result Diagrams: 08/21/18 05:58 08/21/18 05:58 Additional Labs: Microbiology 05/02/13 12:10 Urine voided Urine Culture - Final Escherichia coli 08/20/18 14:30 Lung - Aspirate Acid Fast Bacilli Smear - Final 08/20/18 14:30 Lung - Aspirate Bacterial Culture - Preliminary 08/20/18 14:30 Lung - Aspirate Bacterial Culture - Preliminary 08/20/18 11:20 Pleural - Tissue Bacterial Culture - Preliminary 08/20/18 11:20 Pleural - Tissue Bacterial Culture - Preliminary Laboratory Tests 08/16/18 08/16/18 08/16/18 19:25 19:25 19:25 Hgb 12.9 L Total Bilirubin 1.0 Alkaline Phosphatase 191 H B-Natriuretic Peptide 353.5 H Vancomycin Trough 08/18/18 08/18/18 08/19/18 04:28 04:28 00:16 Hgb 11.4 L Total Bilirubin Alkaline Phosphatase 159 H B-Natriuretic Peptide Vancomycin Trough 15.4 Radiology Reviewed by me: Yes (PCXR - stable changes, R-sided CT in place) EKG Reviewed by me: Yes (Tele - SR) Phys Exam - Physical Examination Constitutional: NAD HEENT: PERRLA, sclera anicteric, oral pharynx no lesions Neck: no nodes, no JVD, supple, full ROM diminished in R hemithorax R-sided CT in place Respiratory: no wheezing S1, S2 Cardiovascular: RRR, no rub, gallop Gastrointestinal: soft, non-tender, no distention, positive bowel sounds Musculoskeletal: no edema, pulses present Neurological: normal sensation, moves all 4 limbs Psychiatric: A&O x 3 Skin: normal turgor, cap refill <2 seconds Dx/Plan (1) Recurrent right pleural effusion Code(s): J90 - PLEURAL EFFUSION, NOT ELSEWHERE CLASSIFIED Status: Acute Comment: s/p recent thoracentesis with reactive effusion and no current evidence for malignancy, Pulmonology assistance appreciated, obtain records from [facility] from recent admits, Lasix 40mg IV BID, continue Zosyn, s/p CT- guided bx and CT insertion with evacuation of effusion (2) Dyspnea Code(s): R06.00 - DYSPNEA, UNSPECIFIED Status: Acute Comment: Secondary to # 1, see above, improved (3) Pulmonary mass Code(s): R91.8 - OTHER NONSPECIFIC ABNORMAL FINDING OF LUNG FIELD Status: Acute Comment: Suspected, consult Pulmonology service, obtain pathology from recent bronchoscopy/thoracentesis at [facility], CT-guided bx of RUL mass complete with pathology pending (4) Chronic anticoagulation Code(s): Z79.01 - ASSISTED (CURRENT) USE OF ANTICOAGULANTS Status: Acute Comment: Anne on hold currently s/p thoracoscopy and R lung bx (5) CHF (congestive heart failure) Code(s): I50.9 - HEART FAILURE, UNSPECIFIED Status: Chronic Qualifiers: Heart failure type: unspecified Heart failure chronicity: chronic Qualified Code(s): I50.9 - Heart failure, unspecified Comment: Compensated currently, obtain echo results to assess EF - Plan continue antibiotics, social and political studies professor, respiratory therapy, DVT proph w/SCDs Stable currently -: Continue CT drainage -: Await final pleural tissue/fluid cx results -: Pleural/pulmonary pathology pending -: Continue Lasix 40mg IV BID * Continue Zosyn
--- NOTE | 2018-08-21 16:04 | PRG ---
DATE OF SERVICE: 08/21/2018 SUBJECTIVE: Mr. Luevano underwent thoracoscopy yesterday. He had pleural biopsies. He had a followup CT guided biopsy of his lung mass after his chest tube was placed. Bacterial cultures are not showing any growth so far. He has no complaints postprocedure, surprisingly, he is complaining of very little pain. He is in no distress. He is afebrile. Heart rate in the 50s,, respiratory rate 16, oximetry is 100% on 3 L, blood pressure 116/58. IMPRESSION: 1. Chronic pleural effusion with air-fluid levels in the pleural fluid status post thoracoscopy, pleural biopsies, pleural fluid cultures and fluid and pleural biopsy sent for cytology. 2. Status post decortication for the chronic pleural effusion with pleural thickening. 3. Status post CT-guided biopsy of a density seen on CT scan. Apparently, he has been there for some time reviewing old notes. PLAN: Continue supportive care. Awaiting results of fluid specimens. Job ID: [id number]
[2018-08-22] MEDS: HYDROcodone/Acetaminophen 5/325 mg Tablet PO PRN ×4 (00:55→21:21)
[2018-08-22] MEDS: Furosemide 40 MG/4 ML VIAL SLOW IVP SCH (05:13)
[2018-08-22] MEDS: Piperacillin/Tazobactam 4.5 GM in Sodium Chloride 0.9% 100 ML IVPB SCH ×4 (05:14→23:33)
[2018-08-22] MEDS: Famotidine 20 MG TAB PO SCH ×2 (09:21→21:23)
[2018-08-22] MEDS: Potassium Chloride 20 MEQ TAB PO SCH (09:21)
[2018-08-22] MEDS: Losartan 25 MG TAB PO SCH (09:21)
--- NOTE | 2018-08-22 12:07 | PDOC.PN ---
- Subjective Encounter Start Date: 08/22/18 Encounter Start Time: 12:05 Subjective: f/u for recurrent R pleural effusion s/p decortication and CT placement -: receiving Zosyn. Feels ok overall with some pain with coughing on R chest - Objective Resuscitation Status - Order Detail: 08/17/18 06:05 Resuscitation Status Routine Resuscitation Status: FULL: Full Resuscitation MAR Reviewed: Yes Vital Signs & Weight: Vital Signs (12 hours) Temp Pulse Resp BP BP Pulse Ox 08/22/18 11:57 97.3 F L 50 L 18 124/57 L 08/22/18 08:00 96.2 F L 46 L 16 98/53 L 93 L 08/22/18 03:29 97.9 F 50 L 18 102/49 L 95 08/22/18 00:05 97.5 F L 79 20 110/51 L 100 Weight Weight 193 lb I&O: 08/21/18 08/22/18 08/23/18 06:59 06:59 06:59 Intake Total 540 2440 Output Total 1010 1685 Balance -470 755 Result Diagrams: 08/21/18 05:58 08/21/18 05:58 Additional Labs: Microbiology 05/02/13 12:10 Urine voided Urine Culture - Final Escherichia coli 08/20/18 14:30 Lung - Aspirate Acid Fast Bacilli Smear - Final 08/20/18 14:30 Lung - Aspirate Bacterial Culture - Preliminary 08/20/18 14:30 Lung - Aspirate Bacterial Culture - Preliminary 08/20/18 14:30 Lung - Aspirate Bacterial Culture - Preliminary 08/20/18 11:20 Pleural - Tissue Bacterial Culture - Preliminary 08/20/18 11:20 Pleural - Tissue Bacterial Culture - Preliminary 08/20/18 11:20 Pleural - Tissue Bacterial Culture - Preliminary Laboratory Tests 08/16/18 08/16/18 08/16/18 19:25 19:25 19:25 Hgb 12.9 L Total Bilirubin 1.0 Alkaline Phosphatase 191 H B-Natriuretic Peptide 353.5 H Vancomycin Trough 08/18/18 08/18/18 08/19/18 04:28 04:28 00:16 Hgb 11.4 L Total Bilirubin Alkaline Phosphatase 159 H B-Natriuretic Peptide Vancomycin Trough 15.4 EKG Reviewed by me: Yes (Tele - sinus guzman in 40's) Phys Exam - Physical Examination Constitutional: NAD HEENT: PERRLA, sclera anicteric, oral pharynx no lesions Neck: no nodes, no JVD, supple, full ROM coarse sounds in R hemithorax, CT in place Respiratory: no wheezing, no rales S1, S2 Cardiovascular: RRR, no rub, gallop Gastrointestinal: soft, non-tender, no distention, positive bowel sounds mild LE edema Musculoskeletal: pulses present, edema present Neurological: normal sensation, moves all 4 limbs Psychiatric: A&O x 3 Skin: normal turgor, cap refill <2 seconds Dx/Plan (1) Recurrent right pleural effusion Code(s): J90 - PLEURAL EFFUSION, NOT ELSEWHERE CLASSIFIED Status: Acute Comment: s/p recent thoracentesis with reactive effusion and no current evidence for malignancy, Pulmonology assistance appreciated, obtain records from [facility] from recent admits, Lasix 40mg IV daily, continue Zosyn, s/p CT- guided bx and CT insertion with evacuation of effusion (2) Dyspnea Code(s): R06.00 - DYSPNEA, UNSPECIFIED Status: Acute Comment: Secondary to # 1, see above, improved (3) Pulmonary mass Code(s): R91.8 - OTHER NONSPECIFIC ABNORMAL FINDING OF LUNG FIELD Status: Acute Comment: Suspected but all pathology negative to date, likely consolidation of lung tissue (4) Chronic anticoagulation Code(s): Z79.01 - CORRECTION (CURRENT) USE OF ANTICOAGULANTS Status: Acute Comment: Eliquis on hold currently s/p thoracoscopy and R lung bx (5) CHF (congestive heart failure) Code(s): I50.9 - HEART FAILURE, UNSPECIFIED Status: Chronic Qualifiers: Heart failure type: unspecified Heart failure chronicity: chronic Qualified Code(s): I50.9 - Heart failure, unspecified Comment: Compensated currently, obtain echo results to assess EF (6) Sinus bradycardia Code(s): R00.1 - BRADYCARDIA, UNSPECIFIED Status: Acute Comment: Appears iatrogenic, decrease Metoprolol 50mg daily - Plan continue antibiotics, PT/OT, early childhood services coordinator, respiratory therapy, out of bed/ ambulate Stable overall -: Decrease Lasix 40mg IV daily -: Decrease Metoprolol 50mg daily -: Continue Zosyn -: AM lab: BMP * .
--- NOTE | 2018-08-22 13:28 | EKG ---
Test Reason : Blood Pressure : / mmHG Vent. Rate : 097 BPM Atrial Rate : 093 BPM P-R Int : 000 ms QRS Dur : 100 ms QT Int : 366 ms P-R-T Axes : 000 000 054 degrees QTc Int : 464 ms Sinus rhythm with A-V dissociation and Accelerated Junctional rhythm Incomplete right bundle branch block Nonspecific ST abnormality Abnormal ECG Confirmed by JUAN JOSE GLASGOW ([id number]), school photograph editor MARIE ROJAS ([id number]) on 08/22/2018 1:27:41 PM Referred By: Confirmed By:JUAN JOSE GLASGOW
--- NOTE | 2018-08-22 20:14 | PRG ---
DATE OF SERVICE: 08/22/2018 SUBJECTIVE: Mr. Luevano did well overnight. He has no complaints. He has not been out of bed much and I have encouraged him to spend time sitting up in a chair, even though he still has chest tube in. OBJECTIVE: VITAL SIGNS: He is afebrile. Heart rate 53, respiratory rate 16, blood pressure 124/60, and oximetry is 93% on a liter and half. CHEST: He has equal breath sounds bilaterally. HEART: Regular rhythm. ABDOMEN: Soft. He did not have an air leak. Pathology for the needle biopsy and the pleural biopsy are negative for malignancy. Cultures are negative at 48 hours. IMPRESSION AND PLAN: Chronic pleural effusion status post thoracentesis once and chest tube placement once with air in the pleural fluid, now status post decortication and thoracoscopy. We will continue with chest tube suction. We will follow his lung density with an outpatient CT probably in 3 to 4 months. I suspect this is an area of round atelectasis. The fluid was initially exudative based on a pleural fluid protein of 4 g. It is unclear whether or not this is simply a parapneumonic effusion that had failed to resolve or his chronic effusion related to something going on with his heart. In any event, we have not identified a malignancy, which he is very reassured with and we will continue to care for him. In the current fashion, we are awaiting removal of chest tube, which probably is several days away. Job ID: [id number]
[2018-08-23] MEDS: HYDROcodone/Acetaminophen 5/325 mg Tablet PO PRN ×3 (03:51→20:32)
[2018-08-23 06:07] LABS: Anion Gap 12 mmol/L (10-20); BUN (Urea Nitrogen) 35 mg/dL (8.4-25.7); Calc. Creatinine Clearance 77 mL/min (70-130); Carbon Dioxide 25 mmol/L (23-31); Chloride 99 mmol/L (98-107); Estimated GFR-MDRD 62; Glucose 116 mg/dL (80-115); Sodium 132 mmol/L (136-145)
[2018-08-23] MEDS: Piperacillin/Tazobactam 4.5 GM in Sodium Chloride 0.9% 100 ML IVPB SCH ×4 (06:18→23:23)
[2018-08-23] MEDS: traMADol HCl 50 MG TAB PO PRN (09:00)
[2018-08-23] MEDS ORDERED: Furosemide 40 MG/4 ML VIAL SLOW IVP SCH (09:00)
[2018-08-23] MEDS: Famotidine 20 MG TAB PO SCH ×2 (09:03→20:32)
[2018-08-23] MEDS: Losartan 25 MG TAB PO SCH (09:03)
[2018-08-23] MEDS: Potassium Chloride 20 MEQ TAB PO SCH (09:03)
[2018-08-23] MEDS: Senokot S 8.6-50 MG TAB PO PRN (15:59)
--- NOTE | 2018-08-23 17:22 | PDOC.PN ---
- Subjective Encounter Start Date: 08/23/18 Encounter Start Time: 17:25 Subjective: f/u for recurrent R pleural effusion s/p thoracoscopy/decortication and -: now CT drainage. Overall feels ok and no SOB. - Objective Resuscitation Status - Order Detail: 08/17/18 06:05 Resuscitation Status Routine Resuscitation Status: FULL: Full Resuscitation MAR Reviewed: Yes Vital Signs & Weight: Vital Signs (12 hours) Temp Pulse Resp BP Pulse Ox 08/23/18 12:00 97.8 F 87 18 138/63 98 08/23/18 08:00 98.0 F 55 L 18 135/63 98 Weight Weight 197 lb 3 oz I&O: 08/22/18 08/23/18 08/24/18 06:59 06:59 06:59 Intake Total 2440 1630 Output Total 1685 2690 Balance 755 -1060 Result Diagrams: 08/21/18 05:58 08/23/18 05:24 Additional Labs: Microbiology 05/02/13 12:10 Urine voided Urine Culture - Final Escherichia coli 08/20/18 14:30 Lung - Aspirate Acid Fast Bacilli Smear - Final 08/20/18 14:30 Lung - Aspirate Bacterial Culture - Preliminary 08/20/18 14:30 Lung - Aspirate Bacterial Culture - Preliminary 08/20/18 14:30 Lung - Aspirate Bacterial Culture - Preliminary 08/20/18 11:20 Pleural - Tissue Bacterial Culture - Preliminary 08/20/18 11:20 Pleural - Tissue Bacterial Culture - Preliminary 08/20/18 11:20 Pleural - Tissue Bacterial Culture - Preliminary Laboratory Tests 08/16/18 08/16/18 08/16/18 19:25 19:25 19:25 Hgb 12.9 L Total Bilirubin 1.0 Alkaline Phosphatase 191 H B-Natriuretic Peptide 353.5 H Vancomycin Trough 08/18/18 08/18/18 08/19/18 04:28 04:28 00:16 Hgb 11.4 L Total Bilirubin Alkaline Phosphatase 159 H B-Natriuretic Peptide Vancomycin Trough 15.4 EKG Reviewed by me: Yes (Tele - SR) Phys Exam - Physical Examination Constitutional: NAD HEENT: PERRLA, sclera anicteric, oral pharynx no lesions Neck: no nodes, no JVD, supple, full ROM few coarse sounds in R hemithorax R-sided CT in place S1, S2 Cardiovascular: RRR, no rub, gallop Gastrointestinal: soft, non-tender, no distention, positive bowel sounds Musculoskeletal: pulses present, edema present Neurological: normal sensation, moves all 4 limbs Psychiatric: A&O x 3 Skin: normal turgor, cap refill <2 seconds Dx/Plan (1) Recurrent right pleural effusion Code(s): J90 - PLEURAL EFFUSION, NOT ELSEWHERE CLASSIFIED Status: Acute Comment: s/p recent thoracentesis with reactive effusion and no current evidence for malignancy, Pulmonology assistance appreciated, obtain records from [facility] from recent admits, Lasix 40mg po BID, continue Zosyn, s/p CT- guided bx and CT insertion with evacuation of effusion (2) Dyspnea Code(s): R06.00 - DYSPNEA, UNSPECIFIED Status: Acute Comment: Secondary to # 1, see above, improved (3) Pulmonary mass Code(s): R91.8 - OTHER NONSPECIFIC ABNORMAL FINDING OF LUNG FIELD Status: Acute Comment: Suspected but all pathology negative to date, likely consolidation of lung tissue (4) Chronic anticoagulation Code(s): Z79.01 - FPC (CURRENT) USE OF ANTICOAGULANTS Status: Acute Comment: [place] on hold currently s/p thoracoscopy and R lung bx (5) CHF (congestive heart failure) Code(s): I50.9 - HEART FAILURE, UNSPECIFIED Status: Chronic Qualifiers: Heart failure type: unspecified Heart failure chronicity: chronic Qualified Code(s): I50.9 - Heart failure, unspecified Comment: Compensated currently, obtain echo results to assess EF (6) Sinus bradycardia Code(s): R00.1 - BRADYCARDIA, UNSPECIFIED Status: Acute Comment: Appears iatrogenic, decrease Metoprolol 50mg daily - Plan continue antibiotics, 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
--- NOTE | 2018-08-23 19:04 | PRG ---
DATE OF SERVICE: 08/23/2018 SUBJECTIVE: Mr. Luevano continues to be stable. Intake and output shows chest tube drainage, reportedly was 1420 mL coming into this morning. OBJECTIVE: VITAL SIGNS: He is afebrile. Heart rate is in 80s, respiratory rate 18, oximetry is 98% on room air, and blood pressure 138/63. LUNGS: Clear. IMPRESSION: Status post thoracoscopy, decortication, pleural biopsies and biopsy of lung mass, all negative. Cultures remain negative. Continue chest tube suction per Cardiothoracic surgery. Once he is out of here, I will be happy to follow him as an outpatient. Job ID: [id number]
[2018-08-23] MEDS: Furosemide 40 MG TAB PO SCH (20:32)
[2018-08-24] MEDS: Piperacillin/Tazobactam 4.5 GM in Sodium Chloride 0.9% 100 ML IVPB SCH ×4 (05:53→23:52)
[2018-08-24] MEDS: HYDROcodone/Acetaminophen 5/325 mg Tablet PO PRN ×4 (06:00→21:49)
[2018-08-24] MEDS ORDERED: Furosemide 40 MG TAB PO SCH (07:30)
--- NOTE | 2018-08-24 07:59 | PDOC.PN ---
- Subjective Encounter Start Date: 08/24/18 Encounter Start Time: 08:50 Subjective: Patient doing well. Tube clamped today. Ambulated to bathroom. Not yet -: gone in hallway. - Objective Resuscitation Status - Order Detail: 08/17/18 06:05 Resuscitation Status Routine Resuscitation Status: FULL: Full Resuscitation MAR Reviewed: Yes Vital Signs & Weight: Vital Signs (12 hours) Temp Pulse Resp BP BP Pulse Ox 08/24/18 07:15 97.8 F 88 16 152/69 H 95 08/24/18 03:00 97.6 F 59 L 16 117/57 L 96 08/24/18 00:00 97.5 F L 77 18 149/77 H 92 L 08/23/18 20:36 97 08/23/18 20:31 97.9 F 84 16 161/69 H 97 Weight Weight 219 lb 7 oz I&O: 08/23/18 08/24/18 08/25/18 06:59 06:59 06:59 Intake Total 1630 2780 Output Total 2690 4390 Balance -1060 -1610 Result Diagrams: 08/21/18 05:58 08/23/18 05:24 Phys Exam - Physical Examination Constitutional: NAD HEENT: moist MMs Respiratory: no wheezing, no rales, no rhonchi right chest tube in place Cardiovascular: RRR, no significant murmur Gastrointestinal: soft, positive bowel sounds Neurological: non-focal, moves all 4 limbs Psychiatric: normal affect, A&O x 3 Dx/Plan (1) Recurrent right pleural effusion Code(s): J90 - PLEURAL EFFUSION, NOT ELSEWHERE CLASSIFIED Status: Acute Comment: s/p recent thoracentesis with reactive effusion and no current evidence for malignancy, Pulmonology assistance appreciated, obtain records from [facility] from recent admits, Lasix 40mg po BID, continue Zosyn, s/p CT- guided bx and CT insertion with evacuation of effusion (2) Dyspnea Code(s): R06.00 - DYSPNEA, UNSPECIFIED Status: Acute Comment: Secondary to # 1, see above, improved (3) Pulmonary mass Code(s): R91.8 - OTHER NONSPECIFIC ABNORMAL FINDING OF LUNG FIELD Status: Acute Comment: Suspected but all pathology negative to date, likely consolidation of lung tissue (4) Chronic anticoagulation Code(s): Z79.01 - USP (CURRENT) USE OF ANTICOAGULANTS Status: Acute Comment: Anne on hold currently s/p thoracoscopy and R lung bx (5) CHF (congestive heart failure) Code(s): I50.9 - HEART FAILURE, UNSPECIFIED Status: Chronic Qualifiers: Heart failure type: unspecified Heart failure chronicity: chronic Qualified Code(s): I50.9 - Heart failure, unspecified Comment: Compensated currently, obtain echo results to assess EF (6) Sinus bradycardia Code(s): R00.1 - BRADYCARDIA, UNSPECIFIED Status: Resolved Comment: Appears iatrogenic, decrease Metoprolol 50mg daily - Plan cont current plan of care, continue antibiotics, DVT proph w/SCDs PT eval, once chest tube removed may be able to go home based on -: PT recs * . - Discharge Day Encounter end time: 09:00 Pulmonology Consult: Meds - Medications MAR Reviewed: Yes Medications: Current Medications Acetaminophen (Tylenol) 650 mg PO Q4H PRN PRN Reason: Headache/Fever/Mild Pain (1-3) Hydrocodone Bitart/Acetaminophen ([place] 5/325) 1 tab PO Q4H PRN PRN Reason: Mild-Moderate Pain (1-5) Last Admin: 08/22/18 17:40 Dose: 1 tab Hydrocodone Bitart/Acetaminophen ([place] 5/325) 2 tab PO Q4H PRN PRN Reason: Moderate to Severe Pain (6-10) Last Admin: 08/24/18 06:00 Dose: 2 tab Calcium Carbonate (Tums) 1,000 mg PO Q4H PRN PRN Reason: Heartburn or Indigestion Dextrose/Water (Dextrose 50%) 25 gm SLOW IVP PRN PRN PRN Reason: Hypoglycemia Famotidine (Pepcid) 20 mg PO BID [facility] Last Admin: 08/23/18 20:32 Dose: 20 mg Fentanyl (Sublimaze) 25 mcg SLOW IVP Q2H PRN PRN Reason: Mild-Moderate Pain (1-5) Fentanyl (Sublimaze) 50 mcg SLOW IVP Q2H PRN PRN Reason: Moderate to Severe Pain (6-10) Furosemide (Lasix) 40 mg PO BID [facility] Last Admin: 08/23/18 20:32 Dose: 40 mg Glucagon (Glucagon) 1 mg IM PRN PRN PRN Reason: Hypoglycemia Guaifenesin/Dextromethorphan (Robitussin Dm) 15 ml PO Q4H PRN PRN Reason: Cough Dextrose/Water (D5w) 1,000 mls @ 0 mls/hr IV .Q0M PRN PRN Reason: Hypoglycemia Piperacillin Sod/Tazobactam (Sod 4.5 gm/ Sodium Chloride) 100 mls @ 200 mls/hr IVPB Q6HR [facility] Last Admin: 08/24/18 05:53 Dose: 100 mls Losartan Potassium (Cozaar) 100 mg PO DAILY [facility] Last Admin: 08/23/18 09:03 Dose: 100 mg Metoprolol Succinate (Toprol Xl) 50 mg PO DAILY [facility] Last Admin: 08/23/18 09:07 Dose: 50 mg Miscellaneous Medication (Pharmacy To Dose) 0 each IVPB ASDIR PRN PRN Reason: Pharmacy to Dose ANTIBIOTICS Ondansetron HCl (Zofran) 4 mg IVP Q6H PRN PRN Reason: Nausea/Vomiting Potassium Chloride (K-Dur) 20 meq PO DAILY [facility] Last Admin: 08/23/18 09:03 Dose: 20 meq Senna/Docusate Sodium (Senokot S) 2 tab PO BID PRN PRN Reason: Constipation Last Admin: 08/23/18 15:59 Dose: 2 tab Sertraline HCl (Zoloft) 50 mg PO DAILY [facility] Last Admin: 08/23/18 09:02 Dose: 50 mg Sodium Chloride (Flush - Normal Saline) 10 ml IVF Q12HR [facility] Last Admin: 08/23/18 21:34 Dose: 10 ml Sodium Chloride (Flush - Normal Saline) 10 ml IVF PRN PRN PRN Reason: Saline Flush Last Admin: 08/23/18 17:49 Dose: 10 ml Tramadol HCl (Ultram) 50 mg PO Q6H PRN PRN Reason: Moderate Pain (4-6) Last Admin: 08/23/18 09:00 Dose: 50 mg - Allergies Allergies/Adverse Reactions: Allergies Allergy/AdvReac Type Severity Reaction Status Date / Time No Allergy Information Allergy Verified 08/17/18 13:13 Available
[2018-08-24] MEDS: Furosemide 40 MG TAB PO SCH ×2 (08:29→21:50)
[2018-08-24] MEDS: Potassium Chloride 20 MEQ TAB PO SCH (08:29)
[2018-08-24] MEDS: Losartan 25 MG TAB PO SCH (08:29)
[2018-08-24] MEDS: Famotidine 20 MG TAB PO SCH ×2 (08:30→21:51)
[2018-08-24] MEDS: Senokot S 8.6-50 MG TAB PO PRN (11:36)
--- NOTE | 2018-08-24 13:56 | PRG ---
DATE OF SERVICE: 08/24/2018 SUBJECTIVE: Mr. Luevano had nice chest tube to water seal. OBJECTIVE: VITAL SIGNS: He is afebrile, heart rate 61, respiratory rate 18, oximetry is 97% on room air, and blood pressure 156/68. Intake and outputs, negative 1610. He had 190 mL out of his chest tube. IMPRESSION: 1. Status post decortication. 2. Status post pleural biopsies that were negative for malignancy. 3. Status post biopsy of lung mass, negative for malignancy. 4. Chronic right pleural effusion that when first tapped at protein level 4 g. 5. Hopefully chest to be out 24 to 48 hours. He can be discharged home. Job ID: [id number]
[2018-08-25] MEDS: Piperacillin/Tazobactam 4.5 GM in Sodium Chloride 0.9% 100 ML IVPB SCH ×2 (05:44→12:46)
[2018-08-25] MEDS: HYDROcodone/Acetaminophen 5/325 mg Tablet PO PRN ×3 (05:44→15:57)
--- NOTE | 2018-08-25 07:24 | PDOC.PN ---
- Subjective Encounter Start Date: 08/25/18 Encounter Start Time: 10:00 Subjective: Patient without complaints. No SOB. No CP. Awaiting Chest tube -: removal. - Objective Resuscitation Status - Order Detail: 08/17/18 06:05 Resuscitation Status Routine Resuscitation Status: FULL: Full Resuscitation MAR Reviewed: Yes Vital Signs & Weight: Vital Signs (12 hours) Temp Pulse Resp BP BP Pulse Ox 08/25/18 03:12 97.7 F 54 L 19 120/56 L 95 08/25/18 00:00 98.0 F 60 16 167/70 H 95 08/24/18 20:50 98.1 F 63 16 135/63 97 Weight Weight 199 lb 3.2 oz I&O: 08/24/18 08/25/18 08/26/18 06:59 06:59 06:59 Intake Total 2780 1930 Output Total 4390 1585 Balance -1610 345 Result Diagrams: 08/21/18 05:58 08/23/18 05:24 Radiology Reviewed by me: Yes (no changes on repeat XR) Phys Exam - Physical Examination Constitutional: NAD HEENT: moist MMs Respiratory: no wheezing, no rales, no rhonchi chest tube in place Cardiovascular: RRR Gastrointestinal: soft, positive bowel sounds Neurological: non-focal, moves all 4 limbs Psychiatric: normal affect, A&O x 3 Dx/Plan (1) Recurrent right pleural effusion Code(s): J90 - PLEURAL EFFUSION, NOT ELSEWHERE CLASSIFIED Status: Acute Comment: s/p recent thoracentesis with reactive effusion and no current evidence for malignancy, Pulmonology assistance appreciated, obtain records from [facility] from recent admits, Lasix 40mg po BID, continue Zosyn, s/p CT- guided bx and CT insertion with evacuation of effusion (2) Dyspnea Code(s): R06.00 - DYSPNEA, UNSPECIFIED Status: Resolved Comment: Secondary to #1, see above, improved (3) Pulmonary mass Code(s): R91.8 - OTHER NONSPECIFIC ABNORMAL FINDING OF LUNG FIELD Status: Acute Comment: Suspected but all pathology negative to date, likely consolidation of lung tissue (4) Chronic anticoagulation 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 Can go home once chest tube out and -: cleared by CT surgery. * . - Discharge Day Encounter end time: 10:20
--- NOTE | 2018-08-25 08:03 | RAD ---
PORTABLE CHEST: History: Right chest decortication follow up. Comparison: 08-21-18 FINDINGS: Right chest tube is again seen in the right lung base. Pleural and parenchymal changes in the right b ase are felt to be fairly similar to the prior exam. There are moderate differences in technique whic h account for some differences. There is some lucent opacities in the base which appear to represent loculated gas. The atelectatic change in the left base has resolved. IMPRESSION: Relatively stable exam. Some of the atelectatic change in the left base have resolved. The right lung pleural and parenchymal changes are felt to be stable. POS: [facility]
[2018-08-25] MEDS: Potassium Chloride 20 MEQ TAB PO SCH (10:17)
[2018-08-25] MEDS: Famotidine 20 MG TAB PO SCH (10:18)
[2018-08-25] MEDS: Furosemide 40 MG TAB PO SCH (10:18)
[2018-08-25] MEDS: Losartan 25 MG TAB PO SCH (10:28)
--- NOTE | 2018-08-25 14:37 | PRG ---
DATE OF SERVICE: 08/25/2018 SUBJECTIVE: Dominique Luevano has his chest tube out. He is not having any problems. He denies pain or shortness of breath. OBJECTIVE: VITAL SIGNS: He is afebrile. Heart rate is 55, respiratory rate is 18, oximetry is 98% on room air, and blood pressure 185/74 and 140/65 earlier. LUNGS: Clear. HEART: Regular rhythm. ABDOMEN: Soft. IMPRESSION: 1. Status post decortication, pleural biopsy and biopsy of lung mass, all negative for malignancy. 2. Chronic pleural effusion, now status post decortication. PLAN: He is stable for discharge in my opinion to follow up with me in 2 weeks in the office with a chest x-ray. Job ID: [id number]
[2018-08-25 16:03] VITALS: BP 178/71; TEMP 97.7
--- NOTE | 2018-08-26 03:35 | DIS ---
DATE OF ADMISSION: 08/16/2018 DATE OF DISCHARGE: 08/25/2018 PRIMARY CARE PHYSICIAN: Dr. Sukhwinder Giraldo. REASON FOR ADMISSION: Recurrent right-sided pleural effusion with shortness of breath. DIAGNOSES AT DISCHARGE: 1. Recurrent right pleural effusion, resolved status post decortication. No evidence of malignancy. 2. Pulmonary mass, likely consolidated lung tissue. No evidence of malignancy. 3. Congestive heart failure, chronic. PROCEDURES: 1. CT of the chest showed a moderate-size right pleural effusion containing some pockets of gas within it, also with confluent parenchymal density in the right middle anterior lobe and right lower posterior lobe, possibly representing atelectasis versus mass or pneumonia, also some mediastinal adenopathy. 2. CT guided lung biopsy showing pleural fibrosis and benign lung parenchyma. 3. Right thoracostomy with total pulmonary decortication and pleural biopsy. CONSULTATIONS: 1. Cardiology, Dr. Moeller. 2. Pulmonology, Dr. Adams. 3. CT surgery, Dr. Enriquez. SUMMARY OF HOSPITAL COURSE: This is a 67-year-old man with a history of recurrent right-sided pleural effusion. This has been tapped before. There was concern for malignancy. However, no malignant cells were found on the fluid. The patient presented to our hospital with increasing shortness of breath. He had replenished fluid along with some air and it is concerning for possible infection versus tumor. Dr. Adams was consulted and determined the patient needed a biopsy and also of the chest tube and decortication. These were done. Dr. Enriquez was consulted for the decortication and thoracostomy. The patient also was thought to possibly be in some congestive failure. Dr. Moeller was consulted. He did diurese the patient a little bit. After diuresis and with chest tube placement, the patient had resolution of his shortness of breath. The chest tube was managed by CT surgery and eventually was DC today after having been clamped for all of yesterday. The patient was put on antibiotics initially for possible infection in the pleural fluid. This pleural fluid came back negative and he has completed 9 days of IV antibiotics. Antibiotics were being discontinued today. He was cleared to discharge by Dr. Adams and Dr. Enriquez. DISCHARGE MANAGEMENT: DISPOSITION: Discharged home. FOLLOWUP: Follow up with Dr. Adams in [address] 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 ACTIVITY: As tolerated. DIET: Healthy heart low-sodium diet. MEDICATIONS: The patient is to resume his previous medications; 1. Amlodipine 10 mg daily. 2. Furosemide 40 mg daily. 3. Hydralazine as needed. 4. Losartan 100 mg daily. 5. Metoprolol-XL 100 mg daily. 6. Potassium chloride 20 mEq daily. 7. Sertraline 50 mg daily plus tramadol 50 mg 1 to 2 tablets every 6 hours as needed for pain, 45 tablets dispensed. Arranging the details of this discharge took 32 minutes. Job ID: [id number]
== END 2018-08-25 19:39 | disposition home or self-care (01) | DRG 164 ==
LOC: ERS 18:40 → ERHOLD 22:52 → T4-A 08-17 10:46 → 2NO 08-17 15:47
PROVIDERS: ADMIT Internal Medicine; ATTEND Internal Medicine
PROC: 0BNK4ZZ Release Right Lung, Percutaneous Endoscopic Approach (ICD-10-PCS; principal; 2018-08-20)
PROC: 0BBN4ZX Excision of Right Pleura, Percutaneous Endoscopic Approach, Diagnostic (ICD-10-PCS; 2018-08-20)
PROC: 05H533Z Insertion of Infusion Device into Right Subclavian Vein, Percutaneous Approach (ICD-10-PCS; 2018-08-20)
PROC: 0B9C3ZX Drainage of Right Upper Lung Lobe, Percutaneous Approach, Diagnostic (ICD-10-PCS; 2018-08-20)
DX: J90 Pleural effusion, not elsewhere classified (principal); I50.32 Chronic diastolic (congestive) heart failure; I11.0 Hypertensive heart disease with heart failure; E78.5 Hyperlipidemia, unspecified; F41.9 Anxiety disorder, unspecified; F17.210 Nicotine dependence, cigarettes, uncomplicated; F17.290 Nicotine dependence, other tobacco product, uncomplicated; R91.8 Other nonspecific abnormal finding of lung field; R00.1 Bradycardia, unspecified; Z95.2 Presence of prosthetic heart valve; Z79.899 Other long term (current) drug therapy
CPT/HCPCS: 32405; 36415; 71045; 71046; 71250; 77012; 80048; 80053; 80202; 82550; 83880; 84165; 84484; 85007; 85025; 85027; 85610; 85730; 87070; 87116; 87205; 87206; 88112; 88305; 88312; 88333; 88334; 93005; J0670; J1642; J1940; J2001; J2250; J2405; J2543; J2704; J3010; J3370; J7050; S0028

== ENCOUNTER 2018-09-02 10:35 | Outpatient (CLI) | payer MEDICARE, OTHER ==
--- NOTE | 2018-09-02 11:31 | RAD ---
2 VIEW CHEST: Date: 09/02/18 HISTORY: Dyspnea. Prior chest decortication and chest tube. Comparison made to portable film of 08/25/18. FINDINGS: There continues to be abnormal opacification of the right lung base obscuring the right hemidiaphragm indicating dense consolidation and atelectasis. Pleural thickening and/or fluid along the right lateral chest wall is noted. Left lung remains clear and unchanged. There is cardiomegaly and postop sternotomy change. IMPRESSION: Continued opacification of the right lung base with pleural thickening and/or pleural fluid along the right lateral chest wall. Findings are similar to the 08/25/18 portable exam. POS: [facility]
== END 2018-09-02 10:36 | disposition home or self-care (01) ==
LOC: RAD 10:35
PROVIDERS: ATTEND Internal Medicine Critical Care Medicine
DX: R06.00 Dyspnea, unspecified (principal); J92.9 Pleural plaque without asbestos; R91.8 Other nonspecific abnormal finding of lung field
CPT/HCPCS: 71046

== ENCOUNTER 2018-09-05 21:16 | Inpatient (IN) | payer MEDICARE, OTHER ==
[2018-09-06] MEDS ORDERED: Ondansetron ODT 4 MG TAB PO PRN (00:51)
[2018-09-06] MEDS ORDERED: Acetaminophen 325 MG TAB PO PRN (00:51)
[2018-09-06] MEDS ORDERED: Ondansetron PF 4 MG/2 ML Vial IVP PRN (00:51)
[2018-09-06] MEDS ORDERED: VANCOMYCIN IVPB PRN (01:01)
[2018-09-06 02:31] VITALS: BMI 28.2
[2018-09-06] MEDS: Piperacillin/Tazobactam 3.375 GM in Sodium Chloride 0.9% 100 ML IVPB SCH ×4 (02:38→21:33)
[2018-09-06 03:12] LABS: #Basophils 0.1 thou/uL (0.0-0.2); #Lymphocytes 0.9 thou/uL (1.20-3.40); #Monocytes 0.7 thou/uL (0.11-0.59); #Neutrophils 5.7 thou/uL (1.40-6.50); %Basophils 0.7 % (0.0-1.0); %Eosinophils 0.5 % (0.0-10.0); %Lymphocytes 12.4 % (21.0-51.0); %Monocytes 8.8 % (0.0-10.0); %Neutrophils 77.6 % (42.0-75.0); Hemoglobin 10.3 g/dL (14.0-18.0); Mean Corpuscular HGB CONC 33.9 g/dL (32.0-36.0); Mean Corpuscular Hemoglobin 30.4 pg (27.0-31.0); Mean Corpuscular Volume 89.5 fL (78.0-98.0); Platelet Count 218 thou/uL (130-400); RBC Distribution Width 12.9 % (11.5-14.5); Red Blood Cell (RBC) Count 3.38 mill/uL (4.70-6.10); White Blood Cell (WBC) Count 7.3 thou/uL (4.8-10.8)
[2018-09-06 03:28] LABS: Vancomycin, Random 12.1 ug/mL (See Comment)
[2018-09-06 03:39] LABS: Anion Gap 14 mmol/L (10-20); BUN (Urea Nitrogen) 19 mg/dL (8.4-25.7); Calc. Creatinine Clearance 111 mL/min (70-130); Calcium 9.2 mg/dL (7.8-10.44); Carbon Dioxide 25 mmol/L (23-31); Chloride 101 mmol/L (98-107); Estimated GFR-MDRD Greater than 90; Glucose 159 mg/dL (80-115); Potassium 3.8 mmol/L (3.5-5.1); Sodium 136 mmol/L (136-145)
[2018-09-06] MEDS: traMADol HCl 50 MG TAB PO PRN (03:50)
--- NOTE | 2018-09-06 04:09 | HP ---
PRIMARY CARE PHYSICIAN: Dr. Sukhwinder Giraldo. CODE STATUS: For this patient is full code. TIME OF EVALUATION: 12 a.m. CHIEF COMPLAINT: Productive cough and shortness of breath. HISTORY OF PRESENT ILLNESS: This is a 67-year-old male patient with past medical history of recent decortication for empyema. The patient came to the hospital after having rather worsening cough that is productive, no clear triggers. No alleviating factors associated with shortness of breath. Symptoms were reported as moderate and the patient has pain associated. The symptoms started insidiously and has been gradually getting worse. REVIEW OF SYSTEMS: CONSTITUTIONAL: No fever, chills, or generalized weakness. RESPIRATORY: The patient has cough, sputum production, shortness of breath. CARDIOVASCULAR: Chest pain. No palpitation. GASTROINTESTINAL: No nausea. No vomiting, diarrhea, or abdominal pain. 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 GENITOURINARY; no burning on urination. EXTREMITIES: No leg swelling. All other systems were reviewed and negative except for the findings mentioned above. PAST MEDICAL HISTORY: Positive for CHF, hyperlipidemia, hypertension. FAMILY HISTORY: Reviewed and non contributory to current presentation. SURGICAL HISTORY: Thoracentesis x3 on May 2018, July 2018, and in August 2018. Surgical history also includes heart valve replacement, hernia surgery, surgical history of appendectomy. PSYCH HISTORY: Includes anxiety. SOCIAL HISTORY: The patient denies alcohol use. No drug use. The patient is a former tobacco user. Smokes cigarettes. The patient quit smoking less than 10 years ago. KNOWN ALLERGIES: No known drug allergies reported. MEDICATIONS: 1. Amlodipine. 2. Metoprolol. 3. Losartan. 4. Furosemide. 5. Sertraline. 6. Hydralazine. PHYSICAL EXAMINATION: VITAL SIGNS: On presentation, blood pressure 166/66 with heart rate 72, respiratory rate was 18, temperature 98.5, oxygen saturation was 97% on room air. GENERAL APPEARANCE: The patient is alert, oriented, not in acute distress. HEENT: Eyes; normal conjunctivae. Moist oral mucosa. Anicteric. No JVD. RESPIRATORY: Bilateral air entry. No rales. No wheezes. Symmetric expansion. The patient has some surgical wounds that are healing properly in the chest wall. CARDIOVASCULAR: Normal rate, regular rhythm. No murmurs. No gallops. No edema. ABDOMEN: Soft. Normal bowel sounds. MUSCULOSKELETAL: Baseline range of motion and strength. No tenderness. SKIN: Warm and intact. No pallor. No rash. No redness. Peripheral pulses are present. Capillary refill seems to be intact. NEUROLOGIC: No evidence of any new focal weakness. Baseline speech. Cranial nerves seems to be intact. PSYCH: The patient is in good mood. No anxiety. Optimal judgment. LABORATORY DATA: Labs were reviewed. The patient has white count of 7.3, hemoglobin 10.3, MCV 89.5, platelet count 218. The paper chart includes papers on transfer. The CT scan done prior to transfer show right-sided pleural effusion that is complex, with air fluid levels, reportedly could be secondary to previous surgical intervention, but also causing failure of empyema due to the degree of complexity in the size. Also, there is right lower lobe pneumonia reported on the CT scan. ASSESSMENT AND PLAN: The patient will be placed in the hospital with following medical problems: 1. Possible right empyema. The patient has been started on broad-spectrum antibiotics. Also, we will consult Thoracic Surgery. 2. Right lower lobe pneumonia, was reported on the CT scan, treatment as above. 3. Deep venous thrombosis prophylaxis. 4. Reportedly history of congestive heart failure, reconcile home medications, presentation seems to be more related to pneumonia/empyema than to any congestive heart failure. 5. Hyperlipidemia. Low-cholesterol diet is advised, we will reconcile home medications. 6. Uncontrolled hypertension with systolic blood pressure 166, reconcile home medications, adjust treatment as needed. We will not treat aggressively due to underlying infection. Job ID: [id number] [facility]
[2018-09-06] MEDS ORDERED: hydrALAZINE 20 MG/ML VIAL SLOW IVP PRN (07:38)
[2018-09-06] MEDS ORDERED: Cepastat Lozenges 1 LOZ PO PRN (07:38)
[2018-09-06] MEDS ORDERED: Eucerin (Mineral Oil/Petrolatum,White) 30 gm Jar TOP PRN (07:38)
[2018-09-06] MEDS ORDERED: Zolpidem Tartrate 5 MG TAB PO PRN (07:38)
[2018-09-06] MEDS ORDERED: Artificial Tears 18 DROP/0.9 ML EA EYE PRN (07:38)
[2018-09-06] MEDS ORDERED: Senokot S 8.6-50 MG TAB PO PRN (07:38)
[2018-09-06] MEDS ORDERED: Diabetic Tussin 200 MG/10 ML UDCUP PO PRN (07:38)
[2018-09-06] MEDS ORDERED: Loperamide HCl 2 MG CAP PO PRN (07:38)
[2018-09-06] MEDS ORDERED: HYDROcodone/Acetaminophen 5/325 mg Tablet PO PRN (07:38)
[2018-09-06] MEDS ORDERED: Sodium Chloride 0.65% Nasal 44 ML BOT EA NARE PRN (07:38)
[2018-09-06] MEDS ORDERED: Loratadine 10 MG TAB PO PRN (07:38)
[2018-09-06] MEDS ORDERED: Sodium Chloride 0.9% 10 ML ONE ×2 (08:23→09:34)
[2018-09-06] MEDS: Aspirin 325 mg Enteric Coated Tablet PO SCH (09:27)
[2018-09-06] MEDS: Amlodipine 10 MG TAB PO SCH (09:28)
[2018-09-06] MEDS: Furosemide 40 MG TAB PO SCH (09:28)
[2018-09-06] MEDS: Losartan 25 MG TAB PO SCH (09:28)
[2018-09-06] MEDS: hydrALAZINE 25 MG TAB PO SCH (09:28)
[2018-09-06] MEDS: Vancomycin HCl 1.25 GM in Sodium Chloride 0.9% 250 ML 250 ML IVPB SCH ×2 (10:14→22:07)
--- NOTE | 2018-09-06 10:34 | PDOC.PN ---
- Subjective Encounter Start Date: 09/06/18 Encounter Start Time: 07:20 -: old records requested/rev Patient seen and examined. No new complaints. No overnight events has cough and YANEZ - Objective Resuscitation Status - Order Detail: 09/06/18 00:51 Resuscitation Status Routine Resuscitation Status: FULL: Full Resuscitation MAR Reviewed: Yes Vital Signs & Weight: Vital Signs (12 hours) Temp Pulse Resp BP BP Pulse Ox 09/06/18 09:28 70 175/70 H 09/06/18 03:34 98.2 F 94 18 150/67 H 94 L 09/06/18 00:00 98.6 F 69 18 172/78 H 95 Weight Weight 191 lb 1.6 oz Result Diagrams: 09/06/18 03:03 09/06/18 03:03 Radiology Reviewed by me: Yes (chest xray reviewed) EKG Reviewed by me: Yes (nsr) Phys Exam - Physical Examination Constitutional: NAD HEENT: PERRLA, moist MMs, sclera anicteric Neck: no JVD, supple Respiratory: no wheezing, no rhonchi reduced air entry right base, dullness, no rales Cardiovascular: RRR, no significant murmur, no rub Gastrointestinal: soft, non-tender, no distention, positive bowel sounds Musculoskeletal: no edema, pulses present Neurological: non-focal, normal sensation Lymphatic: no nodes Psychiatric: normal affect, A&O x 3 Skin: no rash, normal turgor Dx/Plan (1) Pleural effusion, right Code(s): J90 - PLEURAL EFFUSION, NOT ELSEWHERE CLASSIFIED Status: Acute (2) Pleural thickening Status: Acute (3) Anemia, normocytic normochromic Code(s): D64.9 - ANEMIA, UNSPECIFIED Status: Chronic (4) Anxiety and depression Code(s): F41.9 - ANXIETY DISORDER, UNSPECIFIED; F32.9 - MAJOR DEPRESSIVE DISORDER, SINGLE EPISODE, UNSPECIFIED Status: Chronic (5) Hypertension Code(s): I10 - ESSENTIAL (PRIMARY) HYPERTENSION Status: Chronic (6) Right lower lobe pneumonia Code(s): J18.1 - LOBAR PNEUMONIA, UNSPECIFIED ORGANISM Status: Suspected - Plan cont current plan of care, continue antibiotics * CT surgery consulted * doubt has any pneumonia * will get echo today * continue current empiric antibiotics * medication reviewed as below * symptomatic treatment. Review of Systems - Review of Systems ENT: negative: Ear Pain, Ear Discharge, Nose Pain, Nose Discharge, Nose Congestion, Mouth Pain, Mouth Swelling, Throat Pain, Throat Swelling, Other Respiratory: Cough, SOB with Excertion. negative: Dry, Shortness of Breath, Hemoptysis, Pleuritic Pain, Sputum, Wheezing Cardiovascular: negative: chest pain, palpitations, orthopnea, paroxysmal nocturnal dyspnea, edema, light headedness, other Gastrointestinal: negative: Nausea, Vomiting, Abdominal Pain, Diarrhea, Constipation, Melena, Hematochezia, Other Genitourinary: negative: Dysuria, Frequency, Incontinence, Hematuria, Retention , Other Musculoskeletal: negative: Neck Pain, Shoulder Pain, Arm Pain, Back Pain, Hand Pain, Leg Pain, Foot Pain, Other Skin: negative: Rash, Lesions, Kai, Bruising, Other - Medications/Allergies Allergies/Adverse Reactions: Allergies Allergy/AdvReac Type Severity Reaction Status Date / Time No Known Allergies Allergy Verified 09/06/18 00:46 Medications: Current Medications Acetaminophen (Tylenol) 650 mg PO Q4H PRN PRN Reason: Headache/Fever/Mild Pain (1-3) Hydrocodone Bitart/Acetaminophen ([place] 5/325) 1 tab PO Q4H PRN PRN Reason: Moderate Pain (4-6) Amlodipine Besylate (Norvasc) 10 mg PO DAILY [facility] Last Admin: 09/06/18 09:28 Dose: 10 mg Artificial Tears (Tears Naturale) 2 drop EA EYE PRN PRN PRN Reason: Dry Eyes Aspirin (Ecotrin) 325 mg PO DAILY [facility] Last Admin: 09/06/18 09:27 Dose: 325 mg Furosemide (Lasix) 40 mg PO DAILY [facility] Last Admin: 09/06/18 09:28 Dose: 40 mg Guaifenesin (Robitussin Sf) 200 mg PO Q4H PRN PRN Reason: Cough Hydralazine HCl (Apresoline) 25 mg PO DAILY [facility] Last Admin: 09/06/18 09:28 Dose: 25 mg Hydralazine HCl (Apresoline) 10 mg SLOW IVP Q4H PRN PRN Reason: SBP > 180 and HR < 70 Piperacillin Sod/Tazobactam (Sod 3.375 gm/ Sodium Chloride) 100 mls @ 200 mls/ hr IVPB 0200,0800,1400,2000 [facility] Last Admin: 09/06/18 09:19 Dose: 100 mls Vancomycin HCl 1.25 gm/ Sodium (Chloride) 250 mls @ 166.667 mls/hr IVPB 0900, 2100 [facility] Last Admin: 09/06/18 10:14 Dose: 250 mls Loperamide HCl (Imodium) 2 mg PO PRN PRN PRN Reason: Diarrhea/Loose Stools Loratadine (Claritin) 10 mg PO DAILYPRN PRN PRN Reason: Sinus Symptoms Losartan Potassium (Cozaar) 100 mg PO DAILY [facility] Last Admin: 09/06/18 09:28 Dose: 100 mg Metoprolol Succinate (Toprol Xl) 100 mg PO DAILY [facility] Last Admin: 09/06/18 09:27 Dose: 100 mg Mineral Oil/White Petrolatum (Eucerin Cream) 0 gm TOP BIDPRN PRN PRN Reason: Dry Skin Miscellaneous Medication (Pharmacy To Dose) 1 each IVPB PRN PRN PRN Reason: PNA Ondansetron HCl (Zofran Odt) 4 mg PO Q6H PRN PRN Reason: Nausea/Vomiting Ondansetron HCl (Zofran) 4 mg IVP Q6H PRN PRN Reason: Nausea/Vomiting Senna/Docusate Sodium (Senokot S) 2 tab PO BID PRN PRN Reason: Constipation Sertraline HCl (Zoloft) 50 mg PO DAILY [facility] Last Admin: 09/06/18 09:27 Dose: 50 mg Sodium Chloride ([place] Nasal [place] 0.65%) 0 ml EA NARE QIDPRN PRN PRN Reason: Nasal Congestion Throat Lozenges (Cepastat Lozenges) 1 florencia PO Q2H PRN PRN Reason: Sore Throat Tramadol HCl (Ultram) 50 mg PO Q6H PRN PRN Reason: Moderate Pain (4-6) Last Admin: 09/06/18 03:50 Dose: 50 mg Zolpidem Tartrate (Ambien) 5 mg PO HSPRN PRN PRN Reason: Insomnia
[2018-09-06] MEDS ORDERED: Furosemide 40 MG/4 ML VIAL SLOW IVP SCH (11:45)
[2018-09-06] MEDS ORDERED: Potassium Chloride 20 MEQ TAB PO SCH (11:45)
--- NOTE | 2018-09-06 14:14 | CON ---
DATE OF CONSULTATION: HISTORY OF PRESENT ILLNESS: This is a 67-year-old gentleman discharged from the hospital about one week ago. He was in the hospital in mid August of this year for recurrent right pleural effusion with chest drainage and bronchoscopy at the [facility]. No diagnosis was made at that time. He re-presented with dyspnea, ultimately undergoing a thoracoscopic decortication. Biopsies and cultures at that time were negative. He was discharged home. However, yesterday, noticed that he was dyspneic walking from the house to the car and was afraid that he was developing a pneumonia and felt much like he did prior to his August admission. He was seen at [facility] in [place], where chest x-ray and CT scan were done and these were reviewed showing multiloculated effusion with airspaces in the right lower chest cavity with some compression of the right lower lobe and probably middle lobe. PAST MEDICAL HISTORY: Positive for hypertension, dyslipidemia, remote smoking history, although none now. He has a history of supraventricular arrhythmias, followed by Dr. Kaur and has undergone an aortic valve replacement in 2010. He has had remote appendectomy and herniorrhaphy. ALLERGIES: HE HAS NO KNOWN ALLERGIES. MEDICATIONS: Include: 1. Hydralazine 25 mg a day. 2. Amlodipine 10 a day. 3. Lasix 40 a day. 4. Losartan 100 a day. 5. Metoprolol-XL 100 a day. 6. He also takes sertraline 50 mg a day and aspirin one a day. PHYSICAL EXAMINATION: GENERAL: He is an alert and cooperative gentleman, comfortable. VITAL SIGNS: Blood pressure systolic 170, heart rate 95 and regular. LUNGS: Clear to auscultation anteriorly with diminished breath sounds on the right posteriorly. CARDIAC: Resting tachycardia with no obvious murmurs. ABDOMEN: Obese, nontender. EXTREMITIES: He has some skin changes in his legs consistent with chronic venous insufficiency and does have some mild pitting edema bilaterally. LABORATORY VALUES: Include a normal white count, hemoglobin of 10.3, BNP of 517. ASSESSMENT AND PLAN: At this time, the patient has a recurrent effusion, probably due to persistent airspace due to his chronic effusion and inability for his lower lobe to re-expand. He was noted to have a thick peel at the time of surgery and biopsies and cultures were negative. At this time, we will give additional IV Lasix and then Dr. Enriquez and Dr. Adams can consider whether further medical therapy is appropriate or surgical decortication indicated. Job ID: [id number] [facility]
[2018-09-07] MEDS: Piperacillin/Tazobactam 3.375 GM in Sodium Chloride 0.9% 100 ML IVPB SCH ×4 (01:39→21:21)
--- NOTE | 2018-09-07 09:04 | RAD ---
SINGLE VIEW OF THE CHEST: Comparison: 08-25-18 History: Pleural effusion. FINDINGS: Single view of the chest shows a normal sized cardiomediastinal silhouette. The patient is status pos t sternotomy. There is a stable moderate right pleural effusion. The right chest tube has been remove d. IMPRESSION: Moderate pleural effusion. POS: [facility]
[2018-09-07] MEDS: traMADol HCl 50 MG TAB PO PRN (09:22)
[2018-09-07] MEDS: Aspirin 325 mg Enteric Coated Tablet PO SCH (09:22)
[2018-09-07] MEDS: Losartan 25 MG TAB PO SCH (09:22)
[2018-09-07] MEDS: Amlodipine 10 MG TAB PO SCH (09:23)
[2018-09-07] MEDS: hydrALAZINE 25 MG TAB PO SCH (09:23)
[2018-09-07] MEDS: Furosemide 40 MG TAB PO SCH (09:23)
[2018-09-07 09:55] LABS: Vancomycin, Trough 11.4 ug/mL
--- NOTE | 2018-09-07 10:35 | CON ---
DATE OF CONSULTATION: HISTORY OF PRESENT ILLNESS: A 67-year-old gentleman, who was recently discharged from the hospital, presented with acute onset of shortness of breath and associated fevers, chills, sweats, and hemoptysis. He underwent a decortication of his right chest on 08/20/2018. Multiple pleural biopsies were done. All cytology was negative. He has some residual pleural thickening in the left. His x-ray as of this morning shows a persistent pleural thickening in the right lower lobe infiltrate. Apparently, CT of his chest done in [place], which I am unable to access, showed he has effusion at that time. PAST MEDICAL HISTORY: Pertinent for recurrent pleural effusion, status post decortication, hypertension, and hyperlipidemia. PAST SURGICAL HISTORY: Aortic valve surgery, hernia operation, appendix. SOCIAL HISTORY: Former smoker, quit smoking 10 years ago. No alcohol abuse. HOME MEDICATIONS: Include; 1. Ultram. 2. Hydralazine 25. 3. Zoloft 50. 4. Potassium 20. 5. Toprol-XL 100. 6. Cozaar 100. 7. Lasix 40. 8. Aspirin. 9. Amlodipine 10. REVIEW OF SYSTEMS: Otherwise, 10-point negative. PHYSICAL EXAMINATION: GENERAL: He appears to be in no acute distress. VITAL SIGNS: Temperature , respiratory rate 18, temperature 98, and blood pressure 164/77. CHEST: Decreased breath sounds without any wheezing. CARDIAC: Normal S1 and S2. No gallops. ABDOMEN: No masses. IMPRESSION: 1. Right lower lobe pneumonia, pleural effusion, status post decortication. 2. Cardiomyopathy. 3. Former smoker. 4. Anxiety and depression. PLAN: Continue Zosyn, neb treatments, and supportive care. Try to review the CT. Further recommendation as per Cardiovascular Surgery. We will notify Dr. Adams, who has seen him in the past. Consultation note, 70 minutes, 50% direct patient care. Job ID: [id number]
[2018-09-07] MEDS: Vancomycin HCl 1.25 GM in Sodium Chloride 0.9% 250 ML 250 ML IVPB SCH (10:39)
[2018-09-07] MEDS: Vancomycin HCl 1.5 GM in Sodium Chloride 0.9% 250 ML 300 ML IVPB SCH (11:15)
--- NOTE | 2018-09-07 11:18 | PDOC.PN ---
- Subjective Encounter Start Date: 09/07/18 Encounter Start Time: 07:10 Patient seen and examined. No new complaints. No overnight events - Objective Resuscitation Status - Order Detail: 09/06/18 00:51 Resuscitation Status Routine Resuscitation Status: FULL: Full Resuscitation MAR Reviewed: Yes Vital Signs & Weight: Vital Signs (12 hours) Temp Pulse Resp BP Pulse Ox 09/07/18 08:10 98.1 F 65 18 164/77 H 96 09/07/18 03:55 98.2 F 89 16 142/65 H 95 Weight Weight 191 lb 1.6 oz I&O: 09/06/18 09/07/18 09/08/18 06:59 06:59 06:59 Intake Total 3110 Output Total 2300 Balance 810 Result Diagrams: 09/06/18 03:03 09/06/18 03:03 Radiology Reviewed by me: Yes (chest xray reviewed) EKG Reviewed by me: Yes (nsr) Phys Exam - Physical Examination Constitutional: NAD HEENT: PERRLA, moist MMs, sclera anicteric Neck: no JVD, supple Respiratory: no wheezing, no rhonchi reduced air entry on right side Cardiovascular: RRR, no significant murmur, no rub Gastrointestinal: soft, non-tender, no distention, positive bowel sounds Musculoskeletal: no edema, pulses present Neurological: non-focal, normal sensation, moves all 4 limbs Lymphatic: no nodes Psychiatric: normal affect, A&O x 3 Skin: no rash, normal turgor Dx/Plan (1) Pleural effusion, right Code(s): J90 - PLEURAL EFFUSION, NOT ELSEWHERE CLASSIFIED Status: Acute (2) Pleural thickening Status: Acute (3) Anemia, normocytic normochromic Code(s): D64.9 - ANEMIA, UNSPECIFIED Status: Chronic (4) Anxiety and depression Code(s): F41.9 - ANXIETY DISORDER, UNSPECIFIED; F32.9 - MAJOR DEPRESSIVE DISORDER, SINGLE EPISODE, UNSPECIFIED Status: Chronic (5) Hypertension Code(s): I10 - ESSENTIAL (PRIMARY) HYPERTENSION Status: Chronic (6) Right lower lobe pneumonia Code(s): J18.1 - LOBAR PNEUMONIA, UNSPECIFIED ORGANISM Status: Suspected - Plan cont current plan of care, continue antibiotics * DC tele * transfer to medical * CT surgeon and pulmonary on case * currently on empiric antibiotics * medication reviewed as below * symptomatic treatment * further plan based on surgeon and pulmonary. Review of Systems - Review of Systems Respiratory: negative: Cough, Dry, Shortness of Breath, Hemoptysis, SOB with Excertion, Pleuritic Pain, Sputum, Wheezing Cardiovascular: negative: chest pain, palpitations, orthopnea, paroxysmal nocturnal dyspnea, edema, light headedness, other Gastrointestinal: negative: Nausea, Vomiting, Abdominal Pain, Diarrhea, Constipation, Melena, Hematochezia, Other Genitourinary: negative: Dysuria, Frequency, Incontinence, Hematuria, Retention , Other Musculoskeletal: negative: Neck Pain, Shoulder Pain, Arm Pain, Back Pain, Hand Pain, Leg Pain, Foot Pain, Other Skin: negative: Rash, Lesions, Kai, Bruising, Other - Medications/Allergies Allergies/Adverse Reactions: Allergies Allergy/AdvReac Type Severity Reaction Status Date / Time No Known Allergies Allergy Verified 09/06/18 00:46 Medications: Current Medications Acetaminophen (Tylenol) 650 mg PO Q4H PRN PRN Reason: Headache/Fever/Mild Pain (1-3) Hydrocodone Bitart/Acetaminophen ([place] 5/325) 1 tab PO Q4H PRN PRN Reason: Moderate Pain (4-6) Amlodipine Besylate (Norvasc) 10 mg PO DAILY [facility] Last Admin: 09/07/18 09:23 Dose: 10 mg Artificial Tears (Tears Naturale) 2 drop EA EYE PRN PRN PRN Reason: Dry Eyes Aspirin (Ecotrin) 325 mg PO DAILY [facility] Last Admin: 09/07/18 09:22 Dose: 325 mg Furosemide (Lasix) 40 mg PO DAILY [facility] Last Admin: 09/07/18 09:23 Dose: 40 mg Guaifenesin (Robitussin Sf) 200 mg PO Q4H PRN PRN Reason: Cough Hydralazine HCl (Apresoline) 25 mg PO DAILY [facility] Last Admin: 09/07/18 09:23 Dose: 25 mg Hydralazine HCl (Apresoline) 10 mg SLOW IVP Q4H PRN PRN Reason: SBP > 180 and HR < 70 Piperacillin Sod/Tazobactam (Sod 3.375 gm/ Sodium Chloride) 100 mls @ 200 mls/ hr IVPB 0200,0800,1400,2000 [facility] Last Admin: 09/07/18 09:21 Dose: 100 mls Vancomycin HCl 1.5 gm/ Sodium (Chloride) 300 mls @ 200 mls/hr IVPB 1100,2300 [facility] Last Admin: 09/07/18 11:15 Dose: 300 mls Loperamide HCl (Imodium) 2 mg PO PRN PRN PRN Reason: Diarrhea/Loose Stools Loratadine (Claritin) 10 mg PO DAILYPRN PRN PRN Reason: Sinus Symptoms Losartan Potassium (Cozaar) 100 mg PO DAILY [facility] Last Admin: 09/07/18 09:22 Dose: 100 mg Metoprolol Succinate (Toprol Xl) 100 mg PO DAILY [facility] Last Admin: 09/07/18 09:23 Dose: 100 mg Mineral Oil/White Petrolatum (Eucerin Cream) 0 gm TOP BIDPRN PRN PRN Reason: Dry Skin Miscellaneous Medication (Pharmacy To Dose) 1 each IVPB PRN PRN PRN Reason: PNA Ondansetron HCl (Zofran Odt) 4 mg PO Q6H PRN PRN Reason: Nausea/Vomiting Ondansetron HCl (Zofran) 4 mg IVP Q6H PRN PRN Reason: Nausea/Vomiting Senna/Docusate Sodium (Senokot S) 2 tab PO BID PRN PRN Reason: Constipation Sertraline HCl (Zoloft) 50 mg PO DAILY [facility] Last Admin: 09/07/18 09:23 Dose: 50 mg Sodium Chloride ([place] Nasal [place] 0.65%) 0 ml EA NARE QIDPRN PRN PRN Reason: Nasal Congestion Sodium Chloride (Flush - Normal Saline) 10 ml IVF Q12HR [facility] Last Admin: 09/07/18 09:22 Dose: 10 ml Sodium Chloride (Flush - Normal Saline) 10 ml IVF PRN PRN PRN Reason: Saline Flush Last Admin: 09/06/18 12:15 Dose: 10 ml Throat Lozenges (Cepastat Lozenges) 1 florencia PO Q2H PRN PRN Reason: Sore Throat Tramadol HCl (Ultram) 50 mg PO Q6H PRN PRN Reason: Moderate Pain (4-6) Last Admin: 09/07/18 09:22 Dose: 50 mg Zolpidem Tartrate (Ambien) 5 mg PO HSPRN PRN PRN Reason: Insomnia
--- NOTE | 2018-09-07 12:23 | PQF ---
CLINICAL DOCUMENTATION IMPROVEMENT CLARIFICATION FORM: ICD-10 Updated PLEASE DO AN ADDENDUM TO THE PROGRESS NOTE WITH ANY DOCUMENTATION UPDATES OR ADDITIONS AND CARRY THROUGH TO DC SUMMARY. THANK YOU. DATE: 09/07/18 ATTN: DR. DAVID Please exercise your independent, professional judgment in responding to the clarification form. Clinical indicators are provided on the bottom of this form for your review Please check appropriate box(s) to clarify if the following diagnosis has been ruled in or ruled out: "PNEUMONIA" [ ] Ruled in diagnosis [ ] Continue to treat [ ] Resolved [X ] Ruled out diagnosis [ ] Other diagnosis [ ] Unable to determine In addition, please specify: Present on Admission (POA): [ ] Yes [ X ] No [ ] Unable to determine For continuity of documentation, please document condition throughout progress notes and discharge summary. Thank You. CLINICAL INDICATORS - SIGNS / SYMPTOMS / LABS H&P: "MORE RELATED TO PNEUMONIA/EMPYEMA THAN TO ANY CONGESTIVE HEART FAILURE" PROGRESS NOTE 2: "RIGHT PLEURAL EFFUSION" "RIGHT LOWER LOBE PNEUMONIA, SUSPECTED" "DOUBT HAS ANY PNEUMONIA" CONSULTATION REPORT (CV SURGERY) 09/06: "CHEST XRAY AND CT SCAN WERE DONE AND AND THESE WERE REVIEWED SHOWING MULTILOCULATED EFFUSION WITH AIRSPACES IN THE RIGHT LOWER CHEST CAVITY WITH SOME COMPRESSION OF THE RIGHT LOWER LOBE AND PROBABLY MIDDLE LOBE." RISKS: H/O RECURRENT PLEURAL EFFUSION H/O SMOKING TREATMENT: CV SURGERY CONSULT PULMONARY CONSULT IV LASIX (2/3) IV ZOSYN (2/3-PRESENT) IV VANCOMYCIN (STARTED 09/07) TELEMETRY MONITORING (This form is maintained as a part of the permanent medical record) 2014 [employer]. All Rights Reserved [email or web address] Office: [phone] [facility]ITALCynthia
[2018-09-08] MEDS: Vancomycin HCl 1.5 GM in Sodium Chloride 0.9% 250 ML 300 ML IVPB SCH (00:20)
[2018-09-08] MEDS: Piperacillin/Tazobactam 3.375 GM in Sodium Chloride 0.9% 100 ML IVPB SCH ×4 (02:50→22:01)
[2018-09-08] MEDS: traMADol HCl 50 MG TAB PO PRN ×2 (08:00→18:09)
[2018-09-08] MEDS: hydrALAZINE 25 MG TAB PO SCH (08:00)
[2018-09-08] MEDS: Amlodipine 10 MG TAB PO SCH (08:01)
[2018-09-08] MEDS: Losartan 25 MG TAB PO SCH (08:01)
[2018-09-08] MEDS: Furosemide 40 MG TAB PO SCH (08:01)
[2018-09-08] MEDS: Aspirin 325 mg Enteric Coated Tablet PO SCH (08:01)
--- NOTE | 2018-09-08 11:28 | PDOC.PN ---
- Subjective Encounter Start Date: 09/08/18 Encounter Start Time: 09:30 Patient seen and examined. No new complaints. No overnight events - Objective Resuscitation Status - Order Detail: 09/06/18 00:51 Resuscitation Status Routine Resuscitation Status: FULL: Full Resuscitation MAR Reviewed: Yes Vital Signs & Weight: Vital Signs (12 hours) Temp Pulse Resp BP BP BP Pulse Ox 09/08/18 11:19 98.4 F 54 L 18 100/54 L 94 L 09/08/18 08:01 58 L 136/62 09/08/18 08:00 58 L 136/62 94 L 09/08/18 07:44 97.8 F 58 L 16 136/62 94 L 09/08/18 00:00 98.2 F 86 18 147/71 H 96 Weight Weight 191 lb 1.6 oz I&O: 09/07/18 09/08/18 09/09/18 06:59 06:59 06:59 Intake Total 3110 1790 Output Total 2300 Balance 810 1790 Result Diagrams: 09/06/18 03:03 09/06/18 03:03 Phys Exam - Physical Examination Constitutional: NAD HEENT: PERRLA, moist MMs, sclera anicteric Neck: no JVD, supple Respiratory: no wheezing, no rales, no rhonchi Cardiovascular: RRR, no significant murmur, no rub reduced air entry right base Gastrointestinal: soft, non-tender, no distention, positive bowel sounds Musculoskeletal: no edema, pulses present Neurological: non-focal, normal sensation Lymphatic: no nodes Psychiatric: normal affect, A&O x 3 Skin: no rash, normal turgor Dx/Plan (1) Pleural effusion, right Code(s): J90 - PLEURAL EFFUSION, NOT ELSEWHERE CLASSIFIED Status: Acute (2) Pleural thickening Status: Acute (3) Anemia, normocytic normochromic Code(s): D64.9 - ANEMIA, UNSPECIFIED Status: Chronic (4) Anxiety and depression Code(s): F41.9 - ANXIETY DISORDER, UNSPECIFIED; F32.9 - MAJOR DEPRESSIVE DISORDER, SINGLE EPISODE, UNSPECIFIED Status: Chronic (5) Hypertension Code(s): I10 - ESSENTIAL (PRIMARY) HYPERTENSION Status: Chronic (6) Right lower lobe pneumonia Code(s): J18.1 - LOBAR PNEUMONIA, UNSPECIFIED ORGANISM Status: Suspected - Plan cont current plan of care, continue antibiotics * continue empiric zosyn * further plan as per pulmonary and CV surgery * medication reviewed as below * symptomatic treatment. Review of Systems - Review of Systems ENT: negative: Ear Pain, Ear Discharge, Nose Pain, Nose Discharge, Nose Congestion, Mouth Pain, Mouth Swelling, Throat Pain, Throat Swelling, Other Respiratory: negative: Cough, Dry, Shortness of Breath, Hemoptysis, SOB with Excertion, Pleuritic Pain, Sputum, Wheezing Cardiovascular: negative: chest pain, palpitations, orthopnea, paroxysmal nocturnal dyspnea, edema, light headedness, other Gastrointestinal: negative: Nausea, Vomiting, Abdominal Pain, Diarrhea, Constipation, Melena, Hematochezia, Other Genitourinary: negative: Dysuria, Frequency, Incontinence, Hematuria, Retention , Other Musculoskeletal: negative: Neck Pain, Shoulder Pain, Arm Pain, Back Pain, Hand Pain, Leg Pain, Foot Pain, Other - Medications/Allergies Allergies/Adverse Reactions: Allergies Allergy/AdvReac Type Severity Reaction Status Date / Time No Known Allergies Allergy Verified 09/06/18 00:46 Medications: Current Medications Acetaminophen (Tylenol) 650 mg PO Q4H PRN PRN Reason: Headache/Fever/Mild Pain (1-3) Hydrocodone Bitart/Acetaminophen ([place] 5/325) 1 tab PO Q4H PRN PRN Reason: Moderate Pain (4-6) Amlodipine Besylate (Norvasc) 10 mg PO DAILY [facility] Last Admin: 09/08/18 08:01 Dose: 10 mg Artificial Tears (Tears Naturale) 2 drop EA EYE PRN PRN PRN Reason: Dry Eyes Aspirin (Ecotrin) 325 mg PO DAILY [facility] Last Admin: 09/08/18 08:01 Dose: 325 mg Furosemide (Lasix) 40 mg PO DAILY [facility] Last Admin: 09/08/18 08:01 Dose: 40 mg Guaifenesin (Robitussin Sf) 200 mg PO Q4H PRN PRN Reason: Cough Hydralazine HCl (Apresoline) 25 mg PO DAILY [facility] Last Admin: 09/08/18 08:00 Dose: 25 mg Hydralazine HCl (Apresoline) 10 mg SLOW IVP Q4H PRN PRN Reason: SBP > 180 and HR < 70 Piperacillin Sod/Tazobactam (Sod 3.375 gm/ Sodium Chloride) 100 mls @ 200 mls/ hr IVPB 0200,0800,1400,2000 [facility] Last Admin: 09/08/18 08:00 Dose: 100 mls Loperamide HCl (Imodium) 2 mg PO PRN PRN PRN Reason: Diarrhea/Loose Stools Loratadine (Claritin) 10 mg PO DAILYPRN PRN PRN Reason: Sinus Symptoms Losartan Potassium (Cozaar) 100 mg PO DAILY [facility] Last Admin: 09/08/18 08:01 Dose: 100 mg Metoprolol Succinate (Toprol Xl) 100 mg PO DAILY [facility] Last Admin: 09/08/18 08:01 Dose: 100 mg Mineral Oil/White Petrolatum (Eucerin Cream) 0 gm TOP BIDPRN PRN PRN Reason: Dry Skin Ondansetron HCl (Zofran Odt) 4 mg PO Q6H PRN PRN Reason: Nausea/Vomiting Ondansetron HCl (Zofran) 4 mg IVP Q6H PRN PRN Reason: Nausea/Vomiting Senna/Docusate Sodium (Senokot S) 2 tab PO BID PRN PRN Reason: Constipation Sertraline HCl (Zoloft) 50 mg PO DAILY [facility] Last Admin: 09/08/18 08:01 Dose: 50 mg Sodium Chloride ([place] Nasal [place] 0.65%) 0 ml EA NARE QIDPRN PRN PRN Reason: Nasal Congestion Sodium Chloride (Flush - Normal Saline) 10 ml IVF Q12HR [facility] Last Admin: 09/08/18 08:02 Dose: 10 ml Sodium Chloride (Flush - Normal Saline) 10 ml IVF PRN PRN PRN Reason: Saline Flush Last Admin: 09/06/18 12:15 Dose: 10 ml Throat Lozenges (Cepastat Lozenges) 1 florencia PO Q2H PRN PRN Reason: Sore Throat Tramadol HCl (Ultram) 50 mg PO Q6H PRN PRN Reason: Moderate Pain (4-6) Last Admin: 09/08/18 08:00 Dose: 50 mg Zolpidem Tartrate (Ambien) 5 mg PO HSPRN PRN PRN Reason: Insomnia
--- NOTE | 2018-09-08 16:40 | PRG ---
DATE OF SERVICE: 09/08/2018 SUBJECTIVE: Mr. Luevano's events have been reviewed. He tells me that he saw me, then he saw Dr. Giraldo, and he was feeling fine until he got up Friday and went to move his truck, so his could get in. He said he got very short of breath, walking to the car. He said he also noticed both lower extremities were swelling. He presented here, was admitted at 3:30 in the morning on the . He was admitted with a diagnosis of empyema. His chest radiograph compared to the film in my office is changed very little. He says he feels infinitely better and is ambulating in the [place] without difficulty. He has heart problems in the past, he says are only related his valve disease and once he had a porcine valve replacement, he said he has had no more problems with dyspnea on exertion. He was not worked up for thromboembolic disease on this admission. He was on the telemetry bed last admission and had no rhythm disturbances and no severe hypertension as I recall. He has a blood pressure cuff at home, but never takes his blood pressure because he was always doing well. He said his lower extremity edema has all resolved. Intake and output yesterday were positive 810 and today positive 1790, although there is no output recorded. He does not recall ever being told his heart was weak. Chest radiograph has been reviewed. It is unchanged from last visit. IMPRESSION: 1. Loculated exudative effusion that was sterile on two taps at [facility] and here. 2. Lung mass that was biopsied by CT guidance. It was negative for malignancy. Pleural fluid was negative for malignancy as well. 3. ? Congestive heart failure related aortic stenosis, now status post aortic valve replacement. I doubt his shortness of breath is related to thromboembolic disease or reactive airways. He has improved significantly. Cardiothoracic surgeons seen him and do not feel any intervention is necessary at this time. I have explained to him that his x-ray may take 3 to 6 months to normalize. There is nothing lead me to believe based on history or exam or reviewing films that he has an infection in his pleural space at this time. We will continue to follow. Job ID: [id number]
[2018-09-09] MEDS: Piperacillin/Tazobactam 3.375 GM in Sodium Chloride 0.9% 100 ML IVPB SCH (03:16)
[2018-09-09] MEDS: Furosemide 40 MG TAB PO SCH (08:25)
[2018-09-09] MEDS: Aspirin 325 mg Enteric Coated Tablet PO SCH (08:26)
[2018-09-09] MEDS: hydrALAZINE 25 MG TAB PO SCH (10:42)
[2018-09-09] MEDS: Amlodipine 10 MG TAB PO SCH (10:42)
[2018-09-09] MEDS: Losartan 25 MG TAB PO SCH (10:45)
--- NOTE | 2018-09-09 11:01 | PDOC.PN ---
- Subjective Encounter Start Date: 09/09/18 Encounter Start Time: 09:40 Patient seen and examined. No new complaints. No overnight events - Objective Resuscitation Status - Order Detail: 09/06/18 00:51 Resuscitation Status Routine Resuscitation Status: FULL: Full Resuscitation MAR Reviewed: Yes Vital Signs & Weight: Vital Signs (12 hours) Temp Pulse Resp BP Pulse Ox 09/09/18 10:42 54 L 09/09/18 06:55 97.4 F L 54 L 20 100/58 L 94 L Weight Weight 191 lb 1.6 oz I&O: 09/08/18 09/09/18 09/10/18 06:59 06:59 06:59 Intake Total 1790 3450 Balance 1790 3450 Result Diagrams: 09/06/18 03:03 09/06/18 03:03 Phys Exam - Physical Examination Constitutional: NAD HEENT: PERRLA, moist MMs, sclera anicteric Neck: no JVD, supple Respiratory: no wheezing, no rales, no rhonchi Cardiovascular: RRR, no significant murmur, no rub Gastrointestinal: soft, non-tender, no distention, positive bowel sounds Musculoskeletal: no edema, pulses present Neurological: non-focal, normal sensation, moves all 4 limbs Lymphatic: no nodes Psychiatric: normal affect, A&O x 3 Skin: no rash, normal turgor Dx/Plan (1) Pleural effusion, right Code(s): J90 - PLEURAL EFFUSION, NOT ELSEWHERE CLASSIFIED Status: Acute (2) Pleural thickening Status: Acute (3) Anemia, normocytic normochromic Code(s): D64.9 - ANEMIA, UNSPECIFIED Status: Chronic (4) Anxiety and depression Code(s): F41.9 - ANXIETY DISORDER, UNSPECIFIED; F32.9 - MAJOR DEPRESSIVE DISORDER, SINGLE EPISODE, UNSPECIFIED Status: Chronic (5) Hypertension Code(s): I10 - ESSENTIAL (PRIMARY) HYPERTENSION Status: Chronic (6) Right lower lobe pneumonia Code(s): J18.1 - LOBAR PNEUMONIA, UNSPECIFIED ORGANISM Status: Suspected (7) H/O aortic valve replacement with porcine valve Code(s): Z95.3 - PRESENCE OF XENOGENIC HEART VALVE Status: Chronic - Plan cont current plan of care * dc zosyn * lasix bid * medication reviewed as below * symptomatic treatment * see discharge debby. Review of Systems - Review of Systems ENT: negative: Ear Pain, Ear Discharge, Nose Pain, Nose Discharge, Nose Congestion, Mouth Pain, Mouth Swelling, Throat Pain, Throat Swelling, Other Respiratory: negative: Cough, Dry, Shortness of Breath, Hemoptysis, SOB with Excertion, Pleuritic Pain, Sputum, Wheezing Cardiovascular: negative: chest pain, palpitations, orthopnea, paroxysmal nocturnal dyspnea, edema, light headedness, other Gastrointestinal: negative: Nausea, Vomiting, Abdominal Pain, Diarrhea, Constipation, Melena, Hematochezia, Other Genitourinary: negative: Dysuria, Frequency, Incontinence, Hematuria, Retention , Other Musculoskeletal: negative: Neck Pain, Shoulder Pain, Arm Pain, Back Pain, Hand Pain, Leg Pain, Foot Pain, Other - Medications/Allergies Allergies/Adverse Reactions: Allergies Allergy/AdvReac Type Severity Reaction Status Date / Time No Known Allergies Allergy Verified 09/06/18 00:46 Medications: Current Medications Acetaminophen (Tylenol) 650 mg PO Q4H PRN PRN Reason: Headache/Fever/Mild Pain (1-3) Hydrocodone Bitart/Acetaminophen ([place] 5/325) 1 tab PO Q4H PRN PRN Reason: Moderate Pain (4-6) Amlodipine Besylate (Norvasc) 10 mg PO DAILY [facility] Last Admin: 09/09/18 10:42 Dose: Not Given Artificial Tears (Tears Naturale) 2 drop EA EYE PRN PRN PRN Reason: Dry Eyes Aspirin (Ecotrin) 325 mg PO DAILY [facility] Last Admin: 09/09/18 08:26 Dose: 325 mg Furosemide (Lasix) 40 mg PO DAILY [facility] Last Admin: 09/09/18 08:25 Dose: 40 mg Guaifenesin (Robitussin Sf) 200 mg PO Q4H PRN PRN Reason: Cough Hydralazine HCl (Apresoline) 25 mg PO DAILY [facility] Last Admin: 09/09/18 10:42 Dose: Not Given Hydralazine HCl (Apresoline) 10 mg SLOW IVP Q4H PRN PRN Reason: SBP > 180 and HR < 70 Loperamide HCl (Imodium) 2 mg PO PRN PRN PRN Reason: Diarrhea/Loose Stools Loratadine (Claritin) 10 mg PO DAILYPRN PRN PRN Reason: Sinus Symptoms Losartan Potassium (Cozaar) 100 mg PO DAILY [facility] Last Admin: 09/09/18 10:45 Dose: Not Given Metoprolol Succinate (Toprol Xl) 100 mg PO DAILY [facility] Last Admin: 09/09/18 10:45 Dose: Not Given Mineral Oil/White Petrolatum (Eucerin Cream) 0 gm TOP BIDPRN PRN PRN Reason: Dry Skin Ondansetron HCl (Zofran Odt) 4 mg PO Q6H PRN PRN Reason: Nausea/Vomiting Ondansetron HCl (Zofran) 4 mg IVP Q6H PRN PRN Reason: Nausea/Vomiting Senna/Docusate Sodium (Senokot S) 2 tab PO BID PRN PRN Reason: Constipation Sertraline HCl (Zoloft) 50 mg PO DAILY [facility] Last Admin: 09/09/18 08:25 Dose: 50 mg Sodium Chloride ([place] Nasal [place] 0.65%) 0 ml EA NARE QIDPRN PRN PRN Reason: Nasal Congestion Sodium Chloride (Flush - Normal Saline) 10 ml IVF Q12HR [facility] Last Admin: 09/09/18 10:45 Dose: Not Given Sodium Chloride (Flush - Normal Saline) 10 ml IVF PRN PRN PRN Reason: Saline Flush Last Admin: 09/06/18 12:15 Dose: 10 ml Throat Lozenges (Cepastat Lozenges) 1 florencia PO Q2H PRN PRN Reason: Sore Throat Tramadol HCl (Ultram) 50 mg PO Q6H PRN PRN Reason: Moderate Pain (4-6) Last Admin: 09/08/18 18:09 Dose: 50 mg Zolpidem Tartrate (Ambien) 5 mg PO HSPRN PRN PRN Reason: Insomnia
[2018-09-09 11:19] VITALS: BP 120/51; TEMP 98.6
[2018-09-09] MEDS: traMADol HCl 50 MG TAB PO PRN (11:29)
--- NOTE | 2018-09-09 12:01 | DIS ---
DATE OF ADMISSION: 09/05/2018 DATE OF DISCHARGE: 09/09/2018 PRIMARY CARE PHYSICIAN: Dr. Sukhwinder Giraldo. DISCHARGE DISPOSITION: Home. PRIMARY DISCHARGE DIAGNOSIS: Recurrent right pleural effusion with pleural thickening. SECONDARY DISCHARGE DIAGNOSES: 1. Hypertension. 2. History of aortic valve replacement with bioprosthetic valve. 3. Anxiety and depression. 4. Normocytic-normochromic anemia. 5. History of pleural effusion. PRIMARY PROCEDURE/OPERATION: None. RADIOLOGICAL INVESTIGATION: On admission, chest x-ray showed right pleural effusion. SIGNIFICANT LABORATORY DATA: WBC 7.3, hemoglobin 10.3, platelet 218. Sodium 136, potassium 3.8, BUN 19, creatinine 0.79, calcium 9.2. BNP 516. DISCHARGE MEDICATION: 1. Lasix is increased to 40 mg p.o. b.i.d. 2. Cozaar 100 mg daily. 3. Tramadol 50 mg q.6 hourly p.r.n. 4. Zoloft 50 mg daily. 5. Potassium chloride 20 mEq daily. 6. Toprol-XL 100 mg p.o. daily. 7. Hydralazine 25 mg daily. 8. Aspirin 325 mg p.o. daily. 9. Amlodipine 10 mg p.o. daily. CONTRAINDICATION: None. CODE STATUS: Full code. INPATIENT CUTTER INSPECTOR: Dr. Aadms, was following while in hospital. Dr. Dunn was consulted while in hospital. TEST RESULTS PENDING ON DISCHARGE: Echocardiography. DISCHARGE PLAN: Post hospital, the patient will follow up with primary [facility] consultant as well as Dr. Adams as instructed and he will make appointment with primary care physician. The patient will need repeat imaging upon followup visit. HOSPITAL COURSE: A 67-year-old male with above-mentioned medical problem, who was admitted to hospital by Dr. Proctor. Please see his H and P for further details. He presented to the emergency room with increasing shortness of breath. He had pleural effusion on the right side. Initially, he was suspected for empyema. He has recurrent pleural effusion, but previous pleural biopsy and pleural fluid were negative for any malignancy. This patient also has aortic valve replacement, and he had elevated BNP and that is why we did echocardiography and echocardiography result is pending, but during this admission, we decided to increase his Lasix to b.i.d. dose and he will follow up with primary [facility] consultant. At this point, cardiovascular surgeon and the Pulmonology has no new plan and he does not have any clinically suspicious infection or empyema. Initially, he was given antibiotic therapy while in hospital, but on discharge we discontinued antibiotic therapy. The patient is seen and examined at bedside today. Please see my progress note from today for further details. The patient is medically stable for discharge today. Job ID: [id number]
--- NOTE | 2018-09-09 16:32 | PRG ---
DATE OF SERVICE: 09/09/2018 SUBJECTIVE: Mr. Luevano says he is back to his baseline. We went over his history and prior to admission, he said he had significant swelling of his lower extremities. I have asked him to get in to see Dr. Abdulkadir Hollingsworth next week. It sounds like this was a cardiac event, although with a new aortic valve and no history of aortic valve stenosis, really I do not know how to explain this. I doubt he was ischemic. His effusions felt to be unchanged. He has no change in his exam. He will keep his 2-month appointment for another chest radiograph in December. I do not feel he had an acute infection while he was hospitalized here and feel that this may have more likely been related to diastolic dysfunction or valvular heart disease or even coronary ischemia. He will follow up with Dr. Hollingsworth next week, he says. Job ID: [id number]
== END 2018-09-09 15:25 | disposition home or self-care (01) | DRG 187 ==
LOC: ERS 21:16 → 2NO 22:15 → T4-A 09-07 15:58
PROVIDERS: ADMIT Hospitalist; ATTEND Hospitalist
DX: J90 Pleural effusion, not elsewhere classified (principal); I42.9 Cardiomyopathy, unspecified; I11.0 Hypertensive heart disease with heart failure; I50.9 Heart failure, unspecified; E78.5 Hyperlipidemia, unspecified; D64.9 Anemia, unspecified; F41.9 Anxiety disorder, unspecified; F32.9 Major depressive disorder, single episode, unspecified; I87.2 Venous insufficiency (chronic) (peripheral); Z79.899 Other long term (current) drug therapy; Z79.82 Long term (current) use of aspirin; Z95.2 Presence of prosthetic heart valve; Z87.891 Personal history of nicotine dependence
CPT/HCPCS: 36415; 71045; 71046; 80048; 80202; 83880; 85025; 93306; 99285; J1940; J2543; J3370; J7050

== ENCOUNTER 2018-10-29 08:54 | Outpatient (CLI) | payer MEDICARE, OTHER ==
--- NOTE | 2018-10-29 09:11 | RAD ---
CHEST 2 VIEWS: Date: 10/29/18 HISTORY: Dyspnea. COMPARISON: 09/02/18. FINDINGS: Persistent abnormal pleural and parenchymal opacity changes in the right base. Minimal patchy increas ed linear and reticulonodular parenchymal changes in the perihilar regions bilaterally. Postop midlin e sternotomy. Small left pleural effusion. IMPRESSION: Persistent possibly slightly progressive pleural and parenchymal opacity changes in the right base. S mall left pleural effusion. Increased linear and interstitial markings bilaterally, possibly mild con gestion and/or very minimal interstitial edema. Continue short-term follow-up. POS: [place]
== END 2018-10-29 08:55 | disposition home or self-care (01) ==
LOC: RAD 08:54
PROVIDERS: ATTEND Internal Medicine Critical Care Medicine
DX: R06.00 Dyspnea, unspecified (principal); J90 Pleural effusion, not elsewhere classified; R91.8 Other nonspecific abnormal finding of lung field
CPT/HCPCS: 71046

== ENCOUNTER 2018-12-29 09:18 | Outpatient (CLI) | payer MEDICARE, OTHER ==
--- NOTE | 2018-12-29 09:35 | RAD ---
2 views chest. HISTORY: Dyspnea. PA and lateral views of the chest obtained on 12/29/2018. Comparison made to previous exam from . FINDINGS: A right-sided pleural effusion seen with right lower lobe consolidation or mass. Sternotomy wires seen. Cardiomegaly noted. There is also a small left-sided pleural effusion. Radiographic appearance the chest is stable. IMPRESSION: Cardiomegaly and bilateral pleural effusions, right greater than left. Transcribed Date/Time: 12/29/2018 9:52 AM
== END 2018-12-29 09:19 | disposition home or self-care (01) ==
LOC: RAD 09:18
PROVIDERS: ATTEND Internal Medicine Critical Care Medicine
DX: R06.00 Dyspnea, unspecified (principal); J90 Pleural effusion, not elsewhere classified; I51.7 Cardiomegaly
CPT/HCPCS: 71046

== ENCOUNTER 2021-01-23 02:16 | Emergency (ER) | payer MEDICARE, OTHER ==
[2021-01-23 03:13] LABS: #Lymphocytes 0.7 thou/uL (1.20-3.40); #Monocytes 0.6 thou/uL (0.11-0.59); %Basophils 0.3 % (0.0-1.0); %Eosinophils 0.6 % (0.0-10.0); %Lymphocytes 11.5 % (21.0-51.0); %Monocytes 8.7 % (0.0-10.0); Hemoglobin 13.1 g/dL (14.0-18.0); Mean Corpuscular HGB CONC 33.5 g/dL (32.0-36.0); Mean Corpuscular Hemoglobin 31.7 pg (27.0-31.0); Mean Corpuscular Volume 94.6 fL (78.0-98.0); Mean Platelet Volume 9.2 fL (7.4-10.4); Platelet Count 167 thou/uL (130-400); RBC Distribution Width 14.4 % (11.5-14.5); Red Blood Cell (RBC) Count 4.15 mill/uL (4.70-6.10); White Blood Cell (WBC) Count 6.4 thou/uL (4.8-10.8)
[2021-01-23 03:30] LABS: ALT (SGPT) 13 U/L (8-55); AST (SGOT) 24 U/L (5-34); Albumin 3.4 g/dL (3.4-4.8); Alkaline Phosphatase 209 U/L (40-110); Anion Gap 11 mmol/L (10-20); BUN (Urea Nitrogen) 42 mg/dL (8.4-25.7); Bilirubin, Total 0.8 mg/dL (0.2-1.2); CK (CPK) 108 U/L (30-200); Calc. Creatinine Clearance 0 mL/min (70-130); Calcium 9.2 mg/dL (7.8-10.44); Carbon Dioxide 21 mmol/L (23-31); Chloride 105 mmol/L (98-107); Glucose 103 mg/dL (80-115); Potassium 5.1 mmol/L (3.5-5.1); Protein, Total 7.4 g/dL (5.8-8.1); Sodium 132 mmol/L (136-145)
[2021-01-23] MEDS ORDERED: Sucralfate 1 GM/10 ML UDCUP ONE (04:56)
[2021-01-23] MEDS ORDERED: Ketorolac Tromethamine 30 MG/ML VIAL ONE (05:47)
== END 2021-01-23 06:19 | disposition home or self-care (01) ==
LOC: ERS 02:16
DX: R18.8 Other ascites (principal); E03.9 Hypothyroidism, unspecified; I50.9 Heart failure, unspecified; E78.5 Hyperlipidemia, unspecified; I10 Essential (primary) hypertension; Z87.891 Personal history of nicotine dependence; Z79.899 Other long term (current) drug therapy; K74.60 Unspecified cirrhosis of liver
CPT/HCPCS: 36415; 71045; 80053; 82550; 84484; 85025; 93005; 96372; J1885